=== PATIENT | male | born 1940 | race Caucasian/White ===

== ENCOUNTER → 2022-03-23 | Outpatient (CLI) | payer MEDICARE, BC ==
--- NOTE | 2022-03-23 16:22 | Diagnostic Imaging Report ---
INDICATION: PAIN OF LEFT KNEE JOINT TECHNIQUE: 4 views of the left knee CORRELATION STUDY: None FINDINGS: No acute bony alignment. Marked joint space narrowing laterally and, to a lesser degree, medially. Marginal osteophyte formation is noted laterally. There is narrowing and spur-like formation of the distal anterior femur as well as inferior pole of the patella. Prominent suprapatellar joint effusion. Additional soft tissue edema along the medial aspect of the knee. Multiple vascular clips in the soft tissues. IMPRESSION: 1. Negative for acute bony abnormality of the knee. Advanced multicompartment degenerative changes of the left knee most pronounced at the lateral and patellofemoral compartments. Dictated by: Dictated on workstation # [id number]
== END ==
LOC: ORTHO 12:54
PROVIDERS: ATTEND Orthopaedic Surgery
DX: M17.12 Unilateral primary osteoarthritis, left knee (principal)
CPT/HCPCS: 20610; 73564; G0463

== ENCOUNTER → 2022-04-08 | Outpatient (CLI) | payer MEDICARE, BC | LOC: ORTHO 10:15 | PROVIDERS: ATTEND Orthopaedic Surgery | DX: M17.12 Unilateral primary osteoarthritis, left knee (principal); I10 Essential (primary) hypertension; E11.9 Type 2 diabetes mellitus without complications | CPT/HCPCS: 99213 ==

== ENCOUNTER → 2022-05-12 | Outpatient (CLI) | payer MEDICARE ==
[~2022-05-12] VITALS: Ht 175.3 cm; Wt 117.1 kg
[~2022-05-12] MED LIST: CARV3.122 PO; GLIP5TAB26 PO; TMSL.4C PO; TORS100T4 PO
== END | disposition home or self-care (01) ==
LOC: PREOP 10:36
PROVIDERS: ATTEND Orthopaedic Surgery
DX: Z01.818 Encounter for other preprocedural examination (principal)
CPT/HCPCS: 87081; 93005

== ENCOUNTER → 2022-05-12 | Outpatient (CLI) | payer BC, MEDICARE ==
[2022-05-12 10:12] LABS: BASOPHILS % (AUTO) 1 % (0-10); EOSINOPHILS # (AUTO) 0.1 10^3/uL (0.0-0.3); EOSINOPHILS % (AUTO) 1 % (0-10); HEMOGLOBIN 15.3 g/dL (13.3-17.7)
[2022-05-12 10:14] LABS: HEMATOCRIT 46 % (40-54); LYMPHOCYTES # (AUTO) 1.1 10^3/uL (1.0-4.0); LYMPHOCYTES % (AUTO) 23 % (12-44); MEAN CORPUSCULAR HEMOGLOBIN 32 pg (25-34); MEAN CORPUSCULAR HGB CONC 34 g/dL (32-36); MEAN CORPUSCULAR VOLUME 95 fL (80-99); MEAN PLATELET VOLUME 11.9 fL (9.0-12.2); MONOCYTES # (AUTO) 0.4 10^3/uL (0.0-1.0); MONOCYTES % (AUTO) 8 % (0-12); NEUTROPHILS # (AUTO) 3.3 10^3/uL (1.8-7.8); NEUTROPHILS % (AUTO) 67 % (42-75); WHITE BLOOD COUNT 4.9 10^3/uL (4.3-11.0)
[2022-05-12 10:16] LABS: BILIRUBIN,URINE NEGATIVE (NEGATIVE); CLARITY,URINE CLEAR; COLOR,URINE DARK YELLOW; GLUCOSE, URINE (UA) NEGATIVE (NEGATIVE); KETONES,URINE TRACE (NEGATIVE); LEUKOCYTE ESTERASE ,URINE NEGATIVE (NEGATIVE); NITRITE,URINE NEGATIVE (NEGATIVE); PH,URINE 6.5 (5-9); PROTEIN,URINE 2+ (NEGATIVE)
[2022-05-12 10:19] LABS: PLATELET COUNT 106 10^3/uL (130-400)
[2022-05-12 10:38] LABS: RBC,URINE RARE /HPF
[2022-05-12 10:39] LABS: BACTERIA,URINE TRACE /HPF; SQUAMOUS EPITHELIAL CELL,UR RARE /HPF
[2022-05-12 10:55] LABS: CALCIUM 9.5 MG/DL (8.5-10.1); CREATININE SERUM 1.43 MG/DL (0.60-1.30); POTASSIUM 4.2 MMOL/L (3.6-5.0)
--- NOTE | 2022-05-12 11:08 | Diagnostic Imaging Report ---
EXAMINATION: Chest 2 view HISTORY: Preoperative exam. COMPARISON: None available. FINDINGS: The lungs are clear without edema or pneumonia. No pleural effusion or pneumothorax. Heart size is normal. Median sternotomy wires are aligned. There are coronary artery bypass graft markers. IMPRESSION: 1. Clear lungs. Dictated by: Dictated on workstation # [id number]
== END ==
LOC: ORTHO 09:31
PROVIDERS: ATTEND Orthopaedic Surgery
DX: Z01.812 Encounter for preprocedural laboratory examination (principal); Z01.811 Encounter for preprocedural respiratory examination; M17.12 Unilateral primary osteoarthritis, left knee
CPT/HCPCS: 36415; 71046; 80048; 81000; 85025

== ENCOUNTER 2022-05-31 07:05 | Day surgery (SDC) | payer MEDICARE ==
[~2022-05-31] VITALS: Ht 117.1 cm; Wt 117.1 kg
[2022-05-31] VITALS (10 sets, daily range): BP systolic 108–195; BP diastolic 57–89
[2022-05-31] MEDS ORDERED: ONDANSETRON 4 MG/2 ML (SDV) Z0FRAN ONE (07:20)
[2022-05-31] MEDS ORDERED: MIDAZOLAM 2 MG/2 ML (VERSED) VIAL ONE (07:20)
[2022-05-31] MEDS ORDERED: fentaNYL INJ 100 MCG/2 ML AMP ONE (07:20)
[2022-05-31] MEDS ORDERED: proPOfol 200 MG/20 ML (DIPRIVAN) VIAL IV ONE (07:20)
[2022-05-31] MEDS ORDERED: LIDOCAINE PF 2% 5 ML (XYLOCAINE) VIAL ONE (07:20)
[2022-05-31] MEDS ORDERED: TMSL.4C PO (07:25)
[2022-05-31] MEDS ORDERED: GLIP5TAB26 PO (07:25)
[2022-05-31] MEDS ORDERED: TORS100T4 PO (07:25)
[2022-05-31] MEDS ORDERED: BUPIVACAINE 0.5% 30 ML (SENSORCAINE) VIAL ONE (07:26)
--- NOTE | 2022-05-31 07:27 | Progress Note-Pre Operative ---
Pre-Operative Progress Note Date of Available H&P: May 12, 2022 Date H&P Reviewed: May 31, 2022 Time H&P Reviewed: 07:20 History & Physical: H&P Reviewed, Patient Examed, No changes noted Pre-Operative Diagnosis: Left Knee Primary Osteoarthritis MARTHA BROWN MD May 31, 2022 07:27
[2022-05-31] MEDS ORDERED: ceFAZolin INJECTION 2,000 MG in NS (IVPB) 50 ML IV ONE (07:30)
[2022-05-31] MEDS: LACTATED RINGERS 1,000 ML IV PRN ×2 (07:40→09:15)
[2022-05-31] MEDS ORDERED: PROPOFOL INJECTION 50 ML IV ONE (08:09)
[2022-05-31] MEDS ORDERED: SODIUM CHLORIDE 0.9% IRRIGATIO 150 ML, TRANEXAMIC ACID INJECTION 3,000 MG IR ONE ×2 (09:00)
[2022-05-31] MEDS ORDERED: ROPIVACAINE 5MG/ML 30ML VIAL ONE (09:19)
[2022-05-31] MEDS ORDERED: GLYCOPYRROLATE 0.2 MG/ML (ROBINUL) 2 ML VIAL ONE ×2 (09:30→09:31)
--- NOTE | 2022-05-31 10:26 | Operative Report - Ortho ---
Operative Report Surgeon (s)/Accessioner (s) Surgeon MARTHA BROWN MD Accessioner n/a Pre-Operative Diagnosis Left Knee Primary Osteoarthritis Post-Operative Diagnosis same Operative Report Date of Procedure: May 31, 2022 Name of Procedure Performed: Left Total Knee Arthroplasty Description & Findings After obtaining informed consent and marking the patient in the preoperative holding area, the patient did receive IV antibiotics. Patient was taken to the operating room and anesthesia was induced. Surgical timeout was taken. The left lower extremity was prepped and draped in the usual sterile fashion. Incision was made and carried down to fascia. Arthrotomy was performed on the medial side of the patella. Patella was retracted laterally and knee was flexed. Found to have circumferential osteophtye around the distal femur as well as exposed bone in the medial compartment. Hole was made in the distal femur for the intramedullary distal femoral cutting guide. Resection was made then the femur was sized as a 6. 4-in-1 block for a size [address]. Anterior cut was made and there was no notch. Posterior cut was made followed by the chamfers. Box cut was performed. Lug holes were drilled. Attention was turned to the tibial side, extramedullary tibial guide was put into place and aligned with the tibial crest. It was set to take 2 mm off of the affected lateral side. Drop margaret was used to confirm alignment. Resection was made and was parallel to the joint line. Tibial bone block was removed. Lamina machine operator general was put into place and the menisci and posterior osteophytes were removed. The knee was trialed with a size 6 femur and a size 6 tibia with a 9 mm poly trial. It was found to come out to full extension and flexed beyond 120 degrees. It was stable to varus and valgus stress throughout its range of motion. This was accepted. Knee was brought out into extension and the patella was measured and prepared for an inset patella. Osteophytes were removed from around the perimeter of the patella. Patellar implant was placed and was noted to have some lateral tracking. Trial implants were removed. Tibial tray was pinned and punched. The cut bone surfaces were lavaged with pulsatile normal saline. Implants were opened and assembled on the back table. Cement was mixed. Cement was applied to the cut bone surface as well as the implant surface. A size 6 tibial component was impacted into placed and excess cement was removed using a [place]. A size 6 femoral component was impacted into place and excess cement was removed using a [place]. Tibial tray was lavaged with saline. A 9 mm thick polyethylene component was locked into placed and the locking mechanism was checked. Knee was brought into extension. The knee was irrigated with normal saline. Irrigation was removed and tranexamic acid was placed. Once the cement had set, the knee was once again trialed; found to come to full extension, flexed beyond 120 degrees, and was stable to varus and valgus stress. A lateral release was performed to improve patellar tracking. Further tranexamic acid was applied for hemostasis. Tourniquet was dropped and electrocautery was used for further hemostasis. Fascial layer was closed with #2 Stratafix. The subcutaneous layer was closed with 2-0 Vicryl. The skin was closed with ramesh. Wound was dressed with steri-strips, xeroform, 4x4s, ABD, webril, and SUMIT wrap. Patient tolerated the procedure well and was stable to the recovery room. Anesthesia Type Spinal plus regional Estimated Blood Loss ~150 mL Specimen(s) collected/removed None MARTHA BROWN MD May 31, 2022 10:26
[2022-05-31] MEDS ORDERED: BISACODYL 5 MG (DULCOLAX) TABLET PO PRN (10:30)
[2022-05-31] MEDS ORDERED: MILK OF MAGNESIA 400 MG/5 ML 30 ML UDC PO PRN (10:30)
[2022-05-31] MEDS ORDERED: ONDANSETRON 4 MG/2 ML (SDV) Z0FRAN IV PRN (10:30)
[2022-05-31] MEDS ORDERED: HYDROmorphone 2 MG/ML VIAL (DILAUDID) IV ONE (11:15)
[2022-05-31] MEDS ORDERED: ONDANSETRON 4 MG/2 ML (SDV) Z0FRAN IVP PRN (11:15)
--- NOTE | 2022-05-31 11:18 | Diagnostic Imaging Report ---
INDICATION: Postop left knee arthroplasty. TECHNIQUE: AP and lateral views of the left knee were obtained at 10:57 AM. FINDINGS: There is a new left knee prosthesis in good alignment. There is no sign of fracture or device loosening. There is no unexpected radiopaque foreign body. IMPRESSION: Well aligned left knee prosthesis with no unexpected radiopaque foreign body post surgery. Dictated by: Dictated on workstation # [id number]
[2022-05-31] MEDS: inSUlin ASPART (NovoLOG) 1 UNIT/0.01 ML (CHARGE PER UNIT) SC SCH ×3 (11:39→21:16)
[2022-05-31] MEDS: NS IV 1000 ML 1,000 ML IV SCH ×2 (11:45→21:18)
--- NOTE | 2022-05-31 12:49 | Physical Therapy Progress Note ---
Therapy Progress Note Patient reports he can't feel or move anything from the waist down. PT will attempt later today, if unable to participate, PT will begin in a.m. 1 visit EFE PRETTY PT May 31, 2022 12:49
--- NOTE | 2022-05-31 15:09 | Consultation ---
MANUEL MCKEON 05/31/22 1509: HPI History of Present Illness: HPI/Chief Complaint Frederick Gilliam is a pleasant 81 y/o M with a past medical history of T2DM, BPH, HTN, and an ND in 2003 who was admitted after having a L knee arthroplasty done today by Dr. Bermudez. This operation was completed this AM 05/31 without intraoperative complications according to operative reports. Mr Gilliam was moved to the fourth floor for observation. Upon my exam he was lying in bed watching televsion. He is complaining of L knee pain at the surgical site. The pain is 10/10 and he describes it as an ache from his knee down to his left foot. He denies any new swelling, redness, or heat to his knee or foot. He has sensation and motor control of the left foot. He denies any other complaint at this time. No chest pain, shortness of breath, fever, chills, or trouble with urination or stooling. He states PT tried to come work with him earlier this afternoon but he refused because he could not feel his legs yet after surgery, he now has sensation and is ready to begin therapy. PT note says they will see him later today. Source: patient Exam Limitations: no limitations Date Seen 05/31/22 Attending Physician Sadaf Win DO PCP Admitting Physician: Attending Physician: Henry Bermudez MD Referring Physician Date of Admission Home Medications & Allergies Home Medications Reviewed patient Home Medication Reconciliation performed by pharmacy medication reconciliations compliance technician and/or nursing. Patients Allergies have been reviewed. Allergies Allergies Coded Allergies No Known Drug Allergies (Unverified05/12/22) Past Hilbxep-Cjdumt-Jffryd Hx Patient Social History Tobacco Use?: No Smoking Status: Former Smoker (remote 5 pack year history) Use of E-Cig and/or Vaping dev: No Substance use?: No Alcohol Use?: No (occasional drink at social settings once every 6 months or so) Pt feels they are or have been: No Immunizations Up To Date Tetanus Booster (TDap): Unknown Seasonal Allergies Seasonal Allergies: No Current Status Advance Directives: No Communicates: Verbally Primary Language: Sami Is interpretation needed?: No Sensory deficits: Vision impairment Past Medical History Surgeries: CABG (2003), Gallbladder Currently Using CPAP: No Currently Using BIPAP: No Chronic Edema/Swelling, Coronary Artery Disease, Heart Attack, Hypertension Arthritis Diabetes, Non-Insulin dep Family Medical History No Pertinent Family Hx Review of Systems Constitutional: No chills, No fever EENTM: No hoarseness Respiratory: No cough, No short of breath Cardiovascular: No chest pain; Hx of Intervention; No palpitations Gastrointestinal: No abdominal pain, No nausea Genitourinary: other (draining dark yellow urine via catheter) Musculoskeletal: joint pain (chronic) Skin: No change in color Psychiatric/Neurological: Denies Headache, Denies Weakness Physical Exam Physical Exam Vital Signs Vital Signs - First Documented 05/31/22 07:00 Temp 36.8 Pulse 78 Resp 18 B/P (MAP) 195/89 (124) Pulse Ox 95 O2 Delivery Room Air Capillary Refill : Less Than 3 Seconds Height, Weight, BMI Height: '" Weight: lbs. oz. kg; 38.10 BMI Method: General Appearance: No Apparent Distress, WD/WN HEENT: PERRL/EOMI, Moist Mucous Membranes Neck: Other (notes neck stiffness due to uncomfortablity in bed) Respiratory: Chest Non Tender, Normal Breath Sounds, No Accessory Muscle Use Cardiovascular: Regular Rate, Rhythm, No Murmur, Normal Peripheral Pulses Gastrointestinal: Non Tender, Soft Rectal: Deferred Extremity: Normal Capillary Refill (L foot), No Pedal Edema, Other (tenderness at L knee surgical site) Neurologic/Psychiatric: Alert, Oriented x3, Normal Mood/Affect Results Results/Procedures Labs Patient resulted labs reviewed. Imaging: Reviewed Imaging Report Assessment/Plan Assessment and Plan Assess & Plan/Chief Complaint POD 0 L knee arthroplasty Continue pain control. Pt received 5mg of oxycodone and still reports pain at 10/10. Can consider morphine as second line management if pain persists. Monitor for signs of infection. Given cefazolin before surgery. Has not ambulated after surgery yet. PT will begin their consultation later this afternoon as he can now feel his legs. DM SSI, last glucose was 84 HTN BPH 145/57 at last check. Continue to monitor. Will get his daily torsemide tomorrow morning. Continue tamsulosin as well starting tomorrow. MARY VILLASENOR DO 06/01/22 0502: HPI History of Present Illness: HPI/Chief Complaint PCP Dr Win Adult [employer] In[employer] Cota Source: patient Exam Limitations: no limitations Past Eajogsm-Lctxae-Itbjys Hx Patient Social History Marrital Status: Employed/Student: retired Smoking Status: Former Smoker (remote 5 pack year history) Past Medical History Surgeries: CABG (2003) Chronic Edema/Swelling, Coronary Artery Disease, Heart Attack, High Cholesterol, Hypertension Review of Systems Constitutional: see HPI Genitourinary: other (draining dark yellow urine via catheter) Musculoskeletal: joint pain (chronic) Physical Exam Physical Exam General Appearance: No Apparent Distress, WD/WN, Chronically ill, Obese Respiratory: Lungs Clear, Normal Breath Sounds Cardiovascular: Regular Rate, Rhythm Neurologic/Psychiatric: Alert, Oriented x3 Assessment/Plan Assessment and Plan Assess & Plan/Chief Complaint Assessment: Left knee replacement DM HTN CAD prev CABG Plan: Pain control Monitor closely Supervisory-Addendum Brief Verification & Attestation Participated in pt care: history, MDM, physical Personally performed: exam, history, MDM, supervision of care Care discussed with: Medical Student Procedures: n/a Results interpretation: Verified all documentation Verification and Attestation of Medical Student E/M Service A medical student performed and documented this service in my presence. I reviewed and verified all information documented by the medical student and made modifications to such information, when appropriate. I personally performed the physical exam and medical decision making. Mary Villasenor, Jun 01, 2022,05:00 MANUEL MCKEON May 31, 2022 15:09 MARY VILLASENOR DO Jun 01, 2022 05:02
[2022-05-31] MEDS: morphine INJ 4 MG/ML 1 ML (VIAL/SYRINGE) IVP PRN ×2 (15:39→19:44)
[2022-05-31] MEDS: DOCUSATE SODIUM 100 MG (COLACE) CAP PO SCH (19:45)
[2022-05-31] MEDS: ceFAZolin INJECTION 2,000 MG in NS (IVPB) 50 ML IV SCH (19:45)
[2022-06-01] VITALS (9 sets, daily range): BP systolic 142–177; BP diastolic 63–94
[2022-06-01] MEDS: morphine INJ 4 MG/ML 1 ML (VIAL/SYRINGE) IVP PRN (00:22)
[2022-06-01] MEDS: ACETAMINOPHEN 500 MG TAB (TYLENOL) PO PRN ×2 (00:22→09:22)
[2022-06-01] MEDS: ceFAZolin INJECTION 2,000 MG in NS (IVPB) 50 ML IV SCH (04:33)
[2022-06-01 05:26] LABS: BASOPHILS % (AUTO) 1 % (0-10); EOSINOPHILS # (AUTO) 0.1 10^3/uL (0.0-0.3); EOSINOPHILS % (AUTO) 2 % (0-10); HEMATOCRIT 40 % (40-54); HEMOGLOBIN 13.5 g/dL (13.3-17.7); LYMPHOCYTES # (AUTO) 1.2 10^3/uL (1.0-4.0); LYMPHOCYTES % (AUTO) 20 % (12-44); MEAN CORPUSCULAR HEMOGLOBIN 32 pg (25-34); MEAN CORPUSCULAR HGB CONC 34 g/dL (32-36); MEAN CORPUSCULAR VOLUME 95 fL (80-99); MEAN PLATELET VOLUME 12.3 fL (9.0-12.2); MONOCYTES # (AUTO) 0.6 10^3/uL (0.0-1.0); MONOCYTES % (AUTO) 10 % (0-12); NEUTROPHILS # (AUTO) 4.1 10^3/uL (1.8-7.8); NEUTROPHILS % (AUTO) 67 % (42-75); PLATELET COUNT 79 10^3/uL (130-400)
[2022-06-01 05:47] LABS: ALBUMIN 3.3 GM/DL (3.2-4.5); BILIRUBIN,TOTAL 2.4 MG/DL (0.1-1.0); CALCIUM 8.5 MG/DL (8.5-10.1); CREATININE SERUM 1.3 MG/DL (0.60-1.30)
[2022-06-01 05:50] LABS: SMEAR SCAN COMMENT YES
[2022-06-01] MEDS: inSUlin ASPART (NovoLOG) 1 UNIT/0.01 ML (CHARGE PER UNIT) SC SCH ×4 (06:11→20:25)
[2022-06-01] MEDS: NS IV 1000 ML 1,000 ML IV SCH ×2 (06:31→08:48)
[2022-06-01] MEDS: ASPIRIN E.C. 81 MG (ECOTRIN) TAB PO SCH ×2 (07:43→16:29)
[2022-06-01] MEDS: DOCUSATE SODIUM 100 MG (COLACE) CAP PO SCH ×2 (07:43→20:24)
[2022-06-01] MEDS: glipiZIDE XL 5 MG (GLUCOTROL XL) TAB PO SCH (07:44)
--- NOTE | 2022-06-01 08:29 | Occupational Therapy Eval ---
OT Evaluation-General/PLF Medical Diagnosis Admission Date 05/31/22 Medical Diagnosis: Left TKA Onset Date: May 31, 2022 Therapy Diagnosis Therapy Diagnosis: weakness/pain to left knee Precautions Precautions/Isolations: Fall Prevention, Standard Precautions Weight Bear Status Weight Bearing Restriction: Weight Bearing/Tolerated Location Restriction: L LE Referral Referral Reason: Evaluation/Treatment Medical History Additional Medical History Surgeries: CABG (2003) Chronic Edema/Swelling, Coronary Artery Disease, Heart Attack, High Cholesterol, Hypertension Current History s/p LTKA Social History Home: Single Level Current Living Status: Spouse (spouse is currently in rehab) Entry Into Home: Stairs Without Railing (2, son building ramp) Steps Inside Home: 0 (2 steps to enter through garage, son is building ramp for spouse) ADL-Prior Level of Function SCALE: Activities may be completed with or without assistive devices. 5-Boxmixmwsr-fzyklzl completes the activity by him/herself with no assistance from a helper. 5-Set-up or Clean-up Assistance-helper sets up or cleans up; patient completes activity. [place] assists only prior to or following the activity. 4-Supervision or Touching Assistance-helper provides verbal cues and/or touching/steadying and/or contact guard assistance as patient completes activity. Assistance may be provided throughout the activity or intermittently. 3-Partial/Moderate Assistance-helper does LESS THAN HALF the effort. [place] lifts, holds or supports trunk or limbs, but provides less than half the effort. 2-Substantial/Maximal Assistance-helper does MORE THAN HALF the effort. [place] lifts or holds trunk or limbs and provides more than half the effort. 7-Diragtdxw-vnplgt does ALL the effort. Patient does none of the effort to complete the activity. Or, the assistance of 2 or more helpers is required for the patient to complete the activity. If activity was not attempted, code reason: 7-Patient Refused. 9-Not Applicable-not attempted and the patient did not perform the activity before the current illness, exacerbation or injury. 10-Not Attempted due to Environmental Limitations-(lack of equipment, weather restraints, etc.). 88-Not Attempted due to Medical Conditions or Safety Concerns. Self Care: Independent Functional Cognition: Independent DME/Equipment: Bath Chair, Grab Bars, Shower Hose Yarn Spooler DME/Equipment Comments walk in shower, uses cane primarily with ambulation Drive Self: Yes Leisure Interests: golf OT Current Status Subjective Up in chair c/o 4-10/02 pain however reports had pain medication and PT evalu ation this morning Pain Numeric Pain Scale: 5-Moderate Pain Location: Left Location Body Site: Knee Pain Description: Ache, Pressure Mental Status/Objective Patient Orientation: Person, Place, Time, Situation Attachments: Polar Pack (education for use provided, OT set up and patient removed within 5 minutes) Current Glasses/Contacts: Yes Upper Extremity ROM BUE ROM WFLS Upper Extremity Strength BUE WFLS -07/28 ADL-Treatment ADL-Current LB dressing and safety w/ transfers w/ FWW Eating (QC): 6 Oral Hygiene (QC): 4 Shower/Bathe Self (QC): 7 (declined) Upper Body Dressing (QC): 5 Lower Body Dressing (QC): 4 On/Off Footwear (QC): 4 (left foot) Toileting Hygiene (QC): 7 (declined) Other Treatments polar pack instruction,poorly controlled stand to sit to recliner transition Education OT Patient Education: Correct positioning, Energy conservation, Exercise program, Modified ADL techniques, Progress toward Goal/Update tx plan, Purpose of tx/functional activities, Reviewed precautions, Rehab process, Safety issues, Transfer techniques, Use of adapted equipment Teaching Recipient: Patient Teaching Methods: Demonstration, Discussion Response to Teaching: Verbalize Understanding, Return Demonstration, Reinforcement Needed OT Valve Setter Goals [facility] Goals Time Frame: Jun 05, 2022 Eating (QC): 6 Oral Hygiene (QC): 6 Toileting Hygiene (QC): 6 Shower/Bathe Self (QC): 6 Upper Body Dressing (QC): 6 Lower Body Dressing (QC): 6 On/Off Footwear (QC): 6 1=Demonstrate adherence to instructed precautions during ADL tasks. 2=Patient will verbalize/demonstrate understanding of assistive devices/modifications for ADL. 3=Patient will improve strength/tolerance for activity to enable patient to perform ADL's. OT Education/Plan Problem List/Assessment Assessment: Decreased Activ Tolerance, Decreased Safety Aware, Impaired Coordination, Impaired Funct Balance, Impaired I ADL's, Impaired Self-Care Skills Discharge Recommendations Plan/Recommendations: Continue POC Therapy Discharge Recommendati: Post Acute OT Treatment Plan/Plan of Care Treatment,Training & Education: Yes Patient would benefit from OT for education, treatment and training to promote independence in ADL's, mobility, safety and/or upper extremity function for ADL's. Plan of Care: ADL Retraining, Concurrent Therapy, Functional Mobility, Group Exercise/Act as Ind, UE Funct Exercise/Act Treatment Duration: Jun 01, 2022 Frequency: 3 times per week (3-5 times per week) Estimated Hrs Per Day: .25 hour per day Agreement: Yes Rehab Potential: Good patient remains in recliner dressed in own clothing, has removed polar pack and attempted to ambulate and reach in unsafe distances as OT exited room., OT reenforced safety measures and use of call light that is on tray table, all needs met Time Start Time: 08:00 Stop Time: 08:38 DATE: Jun 01, 2022 Total Time Billed (hr/min): 38 Billed Treatment Time 1 visit EVM 1, ADL 2 38 minutes JOE ZHAO OT Jun 01, 2022 08:29
--- NOTE | 2022-06-01 08:42 | Physical Therapy Evaluation ---
PT Evaluation-General Medical Diagnosis Admission Date May 31, 2022 Medical Diagnosis: left TKR Onset Date: May 31, 2022 Therapy Diagnosis Therapy Diagnosis: impaired mobility/weakness Precautions Precautions/Isolations: Fall Prevention, Standard Precautions Weight Bear Status Right Lower Extremity: Right Full Weight Bearing Left Lower Extremity: Left Weight Bearing/Tolerated Referral Physician: Lara Reason for Referral: Evaluation/Treatment Medical History Pertinent Medical History: OA Current History s/p elective left TKR Reviewed History: Yes Social History Home: Single Level Current Living Status: Spouse Entry Into Home: Stairs With Railing PT Steps Into Home: 3 Prior Prior Level of Function SCALE: Activities may be completed with or without assistive devices. 8-Gwedxglkmi-aiqhesd completes the activity by him/herself with no assistance from a helper. 5-Set-up or Clean-up Assistance-helper sets up or cleans up; patient completes activity. [place] assists only prior to or following the activity. 4-Supervision or Touching Assistance-helper provides verbal cues and/or touching/steadying and/or contact guard assistance as patient completes activity. Assistance may be provided throughout the activity or intermittently. 3-Partial/Moderate Assistance-helper does LESS THAN HALF the effort. [place] lifts, holds or supports trunk or limbs, but provides less than half the effort. 2-Substantial/Maximal Assistance-helper does MORE THAN HALF the effort. [place] lifts or holds trunk or limbs and provides more than half the effort. 8-Sksxedeqc-jznlli does ALL the effort. Patient does none of the effort to complete the activity. Or, the assistance of 2 or more helpers is required for the patient to complete the activity. If activity was not attempted, code reason: 7-Patient Refused. 9-Not Applicable-not attempted and the patient did not perform the activity before the current illness, exacerbation or injury. 10-Not Attempted due to Environmental Limitations-(lack of equipment, weather restraints, etc.). 88-Not Attempted due to Medical Conditions or Safety Concerns. Bed Mobility: 6 Transfers (B,C,W/C): 6 Gait: 6 Stairs: 6 Indoor Mobility (Ambulation): Independent Stairs: Independent Prior Devices Use: Walker patient reports he has a ramp as well PT Evaluation-Current Subjective Patient states, "I want to go home. It's just about the money here. I'm ready to go." Patient reports 10/10 left knee pain with meds issued per RN report. Pain Numeric Pain Scale: 10-Worst Possible Pain Location Body Site: Knee Pain Description: Acute Objective Patient Orientation: Normal For Age ROM/Strength ROM Lower Extremities right LE WFL/left LE 0-10 degrees of flexion with patient resisting all ROM Strength Lower Extremities right LE 4/5;left LE 3+/5 grossly Integumentary/Posture Bowel Incontinence: No Bladder Incontinence: No Posture slightly kyphotic Neuromuscular (Tone, Coordination, Reflexes) grossly intact Sensory Vision: Wears Glasses Hearing: Impaired Transfers Lying to Sitting/Side of Bed(Q: 4 Sit to Stand (QC): 3 Chair/Wij-ge-Fcxkz Xfer(QC): 4 Gait Mode of Locomotion: Walk Anticipated Mode of Locomotion: Walk Walk 10 feet (QC): 4 Walk 50 ft with 2 Turns(QC): 4 Walk 150 ft (QC): 4 Distance: 180' Gait Assistive Device: FWW Comments/Gait Description slow, antalgic gait sequence Balance Sitting Static: Normal Sitting Dynamic: Normal Standing Static: Fair Standing Dynamic: Fair Assessment/Needs Patient resists all PROM left knee due to pain. Patient will benefit from skilled PT to address functional strength and mobility to improve current LOF to safely return to home a maximum LOF. Rehab Potential: Fair PT [facility] Goals Client Services Account Manager Goals PT Client Services Account Manager Goals Time Frame: Jun 05, 2022 Roll Left & Right (QC): 6 Sit to Lying (QC): 6 Lying-Sitting on Side/Bed(QC): 6 Sit to Stand (QC): 5 Chair/Oue-jh-Yznme Xfer(QC): 5 Toilet Transfer (QC): 5 Walk 10 feet (QC): 5 Walk 50ft with 2 Turns (QC): 5 Walk 150 ft (QC): 5 1 Step (curb) (QC): 4 4 Steps (QC): 4 PT Plan Problem List Problem List: Activity Tolerance, Functional Strength, Safety, Balance, Gait, Transfer, Bed Mobility, ROM Treatment/Plan Treatment Plan: Continue Plan of Care Treatment Plan: Bed Mobility, Education, Functional Activity Ace, Functional Strength, Gait, Safety, Therapeutic Exercise, Transfers Treatment Duration: Jun 05, 2022 Frequency: 11 times per week Estimated Hrs Per Day: .5 hour per day Patient and/or Family Agrees t: Yes Time Time In: 700 Time Out: 719 DATE: Jun 01, 2022 Total Billed Treatment Time: 19 Total Billed Treatment 1 visit EVModC 19 min EFE PRETTY PT Jun 01, 2022 08:42
[2022-06-01] MEDS ORDERED: TAMSULOSIN 0.4 MG (FLOMAX) CAP PO SCH (09:00)
[2022-06-01] MEDS ORDERED: TORSEMIDE 20 MG (DEMADEX) TAB PO SCH (09:00)
--- NOTE | 2022-06-01 09:09 | Progress Note - Ortho ---
Progress Note Subjective Date of Exam 06/01/22 Chief Complaint POD #1 L TKA HPI/Events since last exam doing well, has started therapy, notes difficulty bending knee Review of Systems - Allergies: Coded Allergies: No Known Drug Allergies (Unverified , 05/12/22) Home Meds Reported Medications Torsemide (Torsemide) 100 Mg Tablet, 100 MG PO DAILY, TAB 05/31/22 Tamsulosin HCl (Flomax) 0.4 Mg Cap, 0.4 MG PO DAILY, CAP 05/31/22 Glipizide (Glipizide ER) 5 Mg Tab.er.24, 5 MG PO DAILY, TAB 05/31/22 Discontinued Reported Medications Torsemide (Torsemide) 100 Mg Tablet, 50 MG PO DAILY, TAB 05/12/22 Tamsulosin HCl (Flomax) 0.4 Mg Cap, 0.4 MG PO HS, CAP 05/12/22 Glipizide (Glipizide ER) 5 Mg Tab.er.24, 5 MG PO DAILY, TAB 05/12/22 Carvedilol (Carvedilol) 3.125 Mg Tablet, 3.125 MG PO BID, TAB 05/12/22 Objective Exam L Knee: Dressing C/D/I, +DF of ankle, no s/s of DVT Vital Signs Vital Signs Date Time Temp Pulse Resp B/P (MAP) Pulse Ox O2 Delivery O2 Flow Rate FiO2 06/01/22 07:52 96 Room Air 06/01/22 07:23 37.7 91 18 162/64 (96) 91 Room Air 0.00 0.00 06/01/22 06:16 91 Room Air 06/01/22 03:28 37.7 58 20 147/65 (92) 94 Nasal Cannula 2.50 06/01/22 01:00 37.8 06/01/22 01:00 37.8 06/01/22 00:23 93 Nasal Cannula 2.50 06/01/22 00:22 38.5 06/01/22 00:17 38.5 71 20 145/63 (90) 85 Room Air 05/31/22 19:50 Room Air 05/31/22 19:19 37.4 69 20 133/60 (84) 93 Room Air 05/31/22 15:32 37.3 70 20 149/66 (93) 93 Room Air 05/31/22 11:56 96 Room Air 05/31/22 11:31 36.0 56 20 145/57 (86) 96 Room Air 05/31/22 11:05 36.2 12 142/64 (90) 95 Room Air 05/31/22 11:05 Room Air 05/31/22 11:00 Room Air 05/31/22 10:50 12 151/67 (95) 96 Room Air 05/31/22 10:45 OxyMask 3 05/31/22 10:40 14 134/84 (101) 100 OxyMask 3 05/31/22 10:30 16 116/65 (82) 98 OxyMask 3 05/31/22 10:30 OxyMask 3 05/31/22 10:20 18 118/66 (83) 99 OxyMask 3 05/31/22 10:15 OxyMask 3 05/31/22 10:15 36.2 16 108/69 (82) 93 OxyMask 3 I & O 06/01/22 07:00 Intake Total 2890 ml Output Total 640 ml Balance 2250 ml Lab Results Laboratory Tests 05/31/22 11:29: Glucometer 84 05/31/22 15:36: Glucometer 176H 05/31/22 20:27: Glucometer 190H 06/01/22 05:10: White Blood Count 6.0, Red Blood Count 4.24L, Hemoglobin 13.5, Hematocrit 40, Mean Corpuscular Volume 95, Mean Corpuscular Hemoglobin 32, Mean Corpuscular Hemoglobin Concent 34, Red Cell Distribution Width 13.5, Platelet Count 79L, Mean Platelet Volume 12.3H, Immature Granulocyte % (Auto) 0, Neutrophils (%) (Auto) 67, Lymphocytes (%) (Auto) 20, Monocytes (%) (Auto) 10, Eosinophils (%) (Auto) 2, Basophils (%) (Auto) 1, Neutrophils # (Auto) 4.1, Lymphocytes # (Auto) 1.2, Monocytes # (Auto) 0.6, Eosinophils # (Auto) 0.1, Basophils # (Auto) 0.0, Immature Granulocyte # (Auto) 0.0, Percent Immature Platelet Fraction 9.4H, Sodium Level 141, Potassium Level 4.0, Chloride Level 106, Carbon Dioxide Level 25, Anion Gap 10, Blood Urea Nitrogen 15, Creatinine 1.30, Estimat Glomerular Filtration Rate 55, BUN/Creatinine Ratio 12, Glucose Level 159H, Calcium Level 8.5, Corrected Calcium 9.1, Total Bilirubin 2.4H, Aspartate Amino Transf (AST/SGOT) 41H, Alanine Aminotransferase (ALT/SGPT) 24, Alkaline Phosphatase 87, Total Protein 6.0L, Albumin 3.3, Smear Scan YES Imaging 2 postop views of the left knee were reviewed and demonstrated good alignment of components and no complicating features Assessment and Plan Assessment 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
--- NOTE | 2022-06-01 09:59 | Anesthesia-Regional Post-Op ---
Regional Patient Condition Mental Status: Alert, Oriented x3 Circulation: Same as Pre-Op Headache: Absent Sensation: Full Recovery Motor Block: Absent Post Op Complications Complications None Follow Up Care/Instructions Patient Instructions None needed. Anesthesia/Patient Condition Patient is doing well, no complaints, stable vital signs, no apparent adverse anesthesia problems. No complications reported per nursing. D/C home per [facility] Criteria: Yes SIS CHAMBERLAIN CRNA Jun 01, 2022 09:59
--- NOTE | 2022-06-01 13:17 | Progress Note ---
MANUEL MCKEON 06/01/22 1317: Subjective Subjective/Events-last exam Mr Bloom was seen at bedside this AM comfortably watching tv. He reports that he feels well and the pain in his L knee is 6/10 which is much improved since yesterday after the operation. He received morphine and acetominophen this AM and his pain is under control. RN reported blood with removal of catheter at around 0600 today. Pt states he has urinated on his own and he denies hematuria/dysuria. PT began seeing him this morning and patient was able to ambulate with them without significant issue. On our repeat visit with Dr. Villasenor Mr. Bloom attempted to go to the restroom by himself and an RN quickly came to assist. He has gained some ability to bend the L knee today compared to yesterday. Home meds restarted this morning. Review of Systems General: No Chills, No Night Sweats HEENT: No Head Aches Pulmonary: No Dyspnea, No Cough Cardiovascular: No: Chest Pain, Palpitations Gastrointestinal: No: Vomiting, Abdominal Pain Genitourinary: No Dysuria; Hematuria (noted on removal of catheter by RN) Musculoskeletal: leg pain Neurological: No: Confusion Objective Exam Last Set of Vital Signs Vital Signs Date Time Temp Pulse Resp B/P (MAP) Pulse Ox O2 Delivery O2 Flow Rate FiO2 06/01/22 12:29 37.2 06/01/22 11:33 78 20 170/70 (103) 94 Room Air 0.00 0.00 Capillary Refill : Less Than 3 Seconds I&O Intake and Output 06/01/22 00:00 Intake Total 2640 ml Output Total 390 ml Balance 2250 ml Intake Oral 540 ml IV Total 2100 ml Output Urine Total 390 ml Daily Weight Change No General: Alert, Oriented X3, Cooperative HEENT: EOMI Neck: Supple Lungs: Clear to Auscultation Heart: Regular Rate, No Murmurs Abdomen: Normal Bowel Sounds, No Tenderness Extremities: No Cyanosis, Other (edema at the ankles b/l. patient reports this is baseline) Neuro: Normal Speech Psych/Mental Status: Mental Status NL, Mood NL Results Lab Laboratory Tests 05/31/22 15:36: Glucometer 176H 05/31/22 20:27: Glucometer 190H 06/01/22 05:10: White Blood Count 6.0, Red Blood Count 4.24L, Hemoglobin 13.5, Hematocrit 40, Mean Corpuscular Volume 95, Mean Corpuscular Hemoglobin 32, Mean Corpuscular Hemoglobin Concent 34, Red Cell Distribution Width 13.5, Platelet Count 79L, Mean Platelet Volume 12.3H, Immature Granulocyte % (Auto) 0, Neutrophils (%) (Auto) 67, Lymphocytes (%) (Auto) 20, Monocytes (%) (Auto) 10, Eosinophils (%) (Auto) 2, Basophils (%) (Auto) 1, Neutrophils # (Auto) 4.1, Lymphocytes # (Auto) 1.2, Monocytes # (Auto) 0.6, Eosinophils # (Auto) 0.1, Basophils # (Auto) 0.0, Immature Granulocyte # (Auto) 0.0, Percent Immature Platelet Fraction 9.4H, Sodium Level 141, Potassium Level 4.0, Chloride Level 106, Carbon Dioxide Level 25, Anion Gap 10, Blood Urea Nitrogen 15, Creatinine 1.30, Estimat Glomerular Filtration Rate 55, BUN/Creatinine Ratio 12, Glucose Level 159H, Calcium Level 8.5, Corrected Calcium 9.1, Total Bilirubin 2.4H, Aspartate Amino Transf (AST/SGOT) 41H, Alanine Aminotransferase (ALT/SGPT) 24, Alkaline Phosphatase 87, Total Protein 6.0L, Albumin 3.3, Smear Scan YES 06/01/22 10:35: Glucometer 185H Microbiology 05/31/22 MRSA Screen - Final, Complete MRSA not isolated Radiology NAME: DANDY BLOOM [facility] REC#: [id number] PT STATUS: REG [facility] : 1940 PHYSICIAN: MARTHA BROWN MD ADMIT DATE: 05/31/22 Signed Date of Exam:05/31/22 KNEE, LEFT, 2 VIEWS (AP & LAT) INDICATION: Postop left knee arthroplasty. TECHNIQUE: AP and lateral views of the left knee were obtained at 10:57 AM. FINDINGS: There is a new left knee prosthesis in good alignment. There is no sign of fracture or device loosening. There is no unexpected radiopaque foreign body. IMPRESSION: Well aligned left knee prosthesis with no unexpected radiopaque foreign body post surgery. Dictated by: Dictated on workstation # [id number] Dict: 05/31/22 1115 Trans: 05/31/22 1241 [id number] Interpreted by: JENNIFER KEANE MD Electronically signed by: JENNIFER KEANE MD 05/31/22 1241 Assessment/Plan Assessment/Plan Assess & Plan/Chief Complaint POD 1 L knee arthroplasty Continue pain control. Morphine and acetominophen given this AM. Monitor for signs of infection. Given cefazolin before surgery. Has began work with PT services, has tolerated ambulation so far. Encouraged IS use 10x per hour. DM SSI, 2 units given today. Last blood sugar in the 180s. Received home med glipizide today. HTN BPH 147/65 at last check. Continue to monitor. Home meds restarted. Plan for transfer to [facility] for rehab services tomorrow. MARY VILLASENOR DO 06/02/22 0512: Subjective Date Seen by a Provider: Jun 01, 2022 Time Seen by a Provider: 11:00 Objective Exam General: Alert, Oriented X3, Cooperative, No Acute Distress Psych/Mental Status: Mental Status NL, Mood NL Supervisory-Addendum Brief Verification & Attestation Participated in pt care: history, MDM, physical Personally performed: exam, history, MDM, supervision of care Care discussed with: Medical Student Procedures: n/a Results interpretation: Verified all documentation Verification and Attestation of Medical Student E/M Service A medical student performed and documented this service in my presence. I reviewed and verified all information documented by the medical student and made modifications to such information, when appropriate. I personally performed the physical exam and medical decision making. Mary Villasenor Jun 02, 2022,05:11 MANUEL MCKEON Jun 01, 2022 13:17 MARY VILLASENOR DO Jun 02, 2022 05:12
--- NOTE | 2022-06-01 13:50 | Physical Therapy Daily Note ---
PT Daily Note-Current Subjective Patient agrees to PT. Pain Section J - Health Conditions 1. Rarely or not at all 2. Occasionally 3. Frequently 4. Almost constantly 8. Unable to answer Pain Effect on Sleep: 2 Pain Interference with Therapy: 2 Pain Interference w/Day-to-Day: 2 Mental Status Patient Orientation: Person, Time, Situation Transfers SCALE: Activities may be completed with or without assistive devices. 1-Qtujbrcahl-abmwhvi completes the activity by him/herself with no assistance from a helper. 5-Set-up or Clean-up Assistance-helper sets up or cleans up; patient completes activity. [place] assists only prior to or following the activity. 4-Supervision or Touching Assistance-helper provides verbal cues and/or touching/steadying and/or contact guard assistance as patient completes activity. Assistance may be provided throughout the activity or intermittently. 3-Partial/Moderate Assistance-helper does LESS THAN HALF the effort. [place] lifts, holds or supports trunk or limbs, but provides less than half the effort. 2-Substantial/Maximal Assistance-helper does MORE THAN HALF the effort. [place] lifts or holds trunk or limbs and provides more than half the effort. 8-Rsbynoqvc-njyknr does ALL the effort. Patient does none of the effort to complete the activity. Or, the assistance of 2 or more helpers is required for the patient to complete the activity. If activity was not attempted, code reason: 7-Patient Refused. 9-Not Applicable-not attempted and the patient did not perform the activity before the current illness, exacerbation or injury. 10-Not Attempted due to Environmental Limitations-(lack of equipment, weather restraints, etc.). 88-Not Attempted due to Medical Conditions or Safety Concerns. Sit to Stand (QC): 4 Weight Bearing Right Lower Extremity: Right Full Weight Bearing Left Lower Extremity: Left Weight Bearing/Tolerated Gait Training Distance: 250' Walk 10 feet (QC): 4 Walk 50 ft with 2 Turns(QC): 4 Walk 150 ft (QC): 4 Gait Assistive Device: FWW CGA for safety/VC's for gait sequence and to bed left knee/heel toe gait Exercises Supine Ex: Ankle pumps, Quad Set, Heel Slides Supine Reps: 12 (AAROM in recliner with LE's elevated) Seated Therapy Exercises: Long arc quads Seated Reps: 15 (AAROM/very resistive with flexion) Assessment Patient tolerated treatment and is up in recliner with lunch in situ. Patient did allow more left knee flexion this p.m. Increase ROM and activity as tolerated by patient. PT [facility] Goals Educational Interpreter Goals PT [facility] Goals Time Frame: Jun 05, 2022 Roll Left & Right (QC): 6 Sit to Lying (QC): 6 Lying-Sitting on Side/Bed(QC): 6 Sit to Stand (QC): 5 Chair/Jrc-hg-Aznkc Xfer(QC): 5 Toilet Transfer (QC): 5 Walk 10 feet (QC): 5 Walk 50ft with 2 Turns (QC): 5 Walk 150 ft (QC): 5 1 Step (curb) (QC): 4 4 Steps (QC): 4 PT Plan Treatment/Plan Treatment Plan: Continue Plan of Care Treatment Plan: Bed Mobility, Education, Functional Activity Ace, Functional Strength, Gait, Safety, Therapeutic Exercise, Transfers Treatment Duration: Jun 05, 2022 Frequency: 11 times per week Estimated Hrs Per Day: .5 hour per day Patient and/or Family Agrees t: Yes Time Time In: 1301 Time Out: 1324 DATE: Jun 01, 2022 Total Billed Treatment Time: 23 Total Billed Treatment 1 visit GT 14 min EX 9 min EFE PRETTY PT Jun 01, 2022 13:50
[2022-06-01] MEDS: TAMSULOSIN 0.4 MG (FLOMAX) CAP PO SCH (16:29)
[2022-06-02 04:27] VITALS: BP 113/62
[2022-06-02 05:23] LABS: MEAN CORPUSCULAR VOLUME 94 fL (80-99)
[2022-06-02 05:26] LABS: BASOPHILS % (AUTO) 1 % (0-10); EOSINOPHILS # (AUTO) 0.1 10^3/uL (0.0-0.3); EOSINOPHILS % (AUTO) 2 % (0-10); HEMATOCRIT 40 % (40-54); HEMOGLOBIN 13.6 g/dL (13.3-17.7); LYMPHOCYTES % (AUTO) 16 % (12-44); MEAN CORPUSCULAR HEMOGLOBIN 32 pg (25-34); MEAN CORPUSCULAR HGB CONC 34 g/dL (32-36); MEAN PLATELET VOLUME 12.4 fL (9.0-12.2); MONOCYTES # (AUTO) 0.6 10^3/uL (0.0-1.0); MONOCYTES % (AUTO) 9 % (0-12); NEUTROPHILS # (AUTO) 4.5 10^3/uL (1.8-7.8); NEUTROPHILS % (AUTO) 72 % (42-75); PLATELET COUNT 81 10^3/uL (130-400); WHITE BLOOD COUNT 6.2 10^3/uL (4.3-11.0)
[2022-06-02 05:53] LABS: ALBUMIN 3.3 GM/DL (3.2-4.5); BILIRUBIN,TOTAL 2.2 MG/DL (0.1-1.0); CALCIUM 9.2 MG/DL (8.5-10.1); CREATININE SERUM 1.35 MG/DL (0.60-1.30); POTASSIUM 3.8 MMOL/L (3.6-5.0); TOTAL PROTEIN 6.2 GM/DL (6.4-8.2)
[2022-06-02] MEDS: inSUlin ASPART (NovoLOG) 1 UNIT/0.01 ML (CHARGE PER UNIT) SC SCH ×4 (06:02→20:47)
[2022-06-02 07:41] VITALS: BP 129/67
[2022-06-02] MEDS: TORSEMIDE 20 MG (DEMADEX) TAB PO SCH (08:12)
[2022-06-02] MEDS: DOCUSATE SODIUM 100 MG (COLACE) CAP PO SCH ×2 (08:12→20:01)
[2022-06-02] MEDS: glipiZIDE XL 5 MG (GLUCOTROL XL) TAB PO SCH (08:12)
[2022-06-02] MEDS: ASPIRIN E.C. 81 MG (ECOTRIN) TAB PO SCH ×2 (08:12→17:38)
--- NOTE | 2022-06-02 09:51 | Occupational Ther Daily Note ---
OT Current Status-Daily Note Subjective Resting reclined in chair Pain Numeric Pain Scale: 6 (with intial ROM and transitional movements 4/10 thereafter) Mental Status/Objective Patient Orientation: Person, Place, Time, Situation (will transfer to rehab closer to home) ADL-Treatment standing toileting, ADL transfer training Therapy Code Descriptions/Definitions Functional [place] Measure: 0=Not Assessed/NA 4=Minimal Assistance 1=Total Assistance 5=Supervision or Setup 2=Maximal Assistance 6=Modified [place] 3=Moderate Assistance 7=Complete IndependenceSCALE: Activities may be completed with or without assistive devices. 9-Mbyrvwhpem-bbpcfir completes the activity by him/herself with no assistance from a helper. 5-Set-up or Clean-up Assistance-helper sets up or cleans up; patient completes activity. [place] assists only prior to or following the activity. 4-Supervision or Touching Assistance-helper provides verbal cues and/or touching/steadying and/or contact guard assistance as patient completes activity. Assistance may be provided throughout the activity or intermittently. 3-Partial/Moderate Assistance-helper does LESS THAN HALF the effort. [place] lifts, holds or supports trunk or limbs, but provides less than half the effort. 2-Substantial/Maximal Assistance-helper does MORE THAN HALF the effort. [place] lifts or holds trunk or limbs and provides more than half the effort. 0-Quqatrudn-pzmisc does ALL the effort. Patient does none of the effort to complete the activity. Or, the assistance of 2 or more helpers is required for the patient to complete the activity. If activity was not attempted, code reason: 7-Patient Refused. 9-Not Applicable-not attempted and the patient did not perform the activity before the current illness, exacerbation or injury. 10-Not Attempted due to Environmental Limitations-(lack of equipment, weather restraints, etc.). 88-Not Attempted due to Medical Conditions or Safety Concerns. Eating (QC): 6 Oral Hygiene (QC): 4 (requires safety cues standing at sink w/ FWW) Shower/Bathe Self (QC): 7 (declines) Upper Body Dressing (QC): 5 Lower Body Dressing (QC): 3 On/Off Footwear: 3 Toileting Hygiene (QC): 7 (standing urination) Toilet Transfer (QC): 7 (standing urination) Other Treatment various surfaces w/ w/o arm rests for transfer training. Standard chair w/o arm rest Max assist, w/ arm rest mod assist, instructed in arm chair pushup 10 reps Education OT Patient Education: Correct positioning, Energy conservation, Exercise program (Instructed in arm chair push ups), Modified ADL techniques, Progress toward Goal/Update tx plan, Purpose of tx/functional activities, Reviewed precautions, Rehab process, Safety issues, Transfer techniques, Use of adapted equipment Teaching Recipient: Patient Teaching Methods: Demonstration, Discussion Response to Teaching: Verbalize Understanding, Reinforcement Needed OT Retirement Goals Talent Acquisition Assistant Goals Time Frame: Jun 05, 2022 Eating (QC): 6 Oral Hygiene (QC): 6 Toileting Hygiene (QC): 6 Shower/Bathe Self (QC): 6 Upper Body Dressing (QC): 6 Lower Body Dressing (QC): 6 On/Off Footwear (QC): 6 1=Demonstrate adherence to instructed precautions during ADL tasks. 2=Patient will verbalize/demonstrate understanding of assistive devices/modifications for ADL. 3=Patient will improve strength/tolerance for activity to enable patient to perform ADL's. OT Education/Plan Problem List/Assessment Assessment: Decreased Activ Tolerance, Decreased Safety Aware, Decreased UE Strength, Impaired Cognition, Impaired Coordination, Impaired Funct Balance, Impaired Self-Care Skills Discharge Recommendations Plan/Recommendations: Continue POC Therapy Discharge Recommendati: Post Acute OT Treatment Plan/Plan of Care Treatment,Training & Education: Yes Patient would benefit from OT for education, treatment and training to promote independence in ADL's, mobility, safety and/or upper extremity function for ADL's. Plan of Care: ADL Retraining, Concurrent Therapy, Functional Mobility, Group Exercise/Act as Ind, UE Funct Exercise/Act Treatment Duration: Jun 01, 2022 Frequency: 3 times per week (3-5 times per week) Estimated Hrs Per Day: .25 hour per day Agreement: Yes Rehab Potential: Good Up in recliner resting, all needs met Time Start Time: 09:19 Stop Time: 09:36 DATE: Jun 02, 2022 Total Time Billed (hr/min): 17 Billed Treatment Time 1 visit ADL 1 17 min JOE ZHAO OT Jun 02, 2022 09:51
--- NOTE | 2022-06-02 10:38 | Physical Therapy Daily Note ---
PT Daily Note-Current Subjective Pt. up in recliner, agrees to rx but resists knee flexion. Pt. c/o pain in left knee but doesnt rate. Requests to toilet during Rx. Pain Section J - Health Conditions 1. Rarely or not at all 2. Occasionally 3. Frequently 4. Almost constantly 8. Unable to answer Pain Effect on Sleep: 2 Pain Interference with Therapy: 2 Pain Interference w/Day-to-Day: 2 Mental Status Patient Orientation: Normal For Age Attachments: Polar Pack Transfers SCALE: Activities may be completed with or without assistive devices. 1-Rqsgciulol-fslvhoc completes the activity by him/herself with no assistance from a helper. 5-Set-up or Clean-up Assistance-helper sets up or cleans up; patient completes activity. [place] assists only prior to or following the activity. 4-Supervision or Touching Assistance-helper provides verbal cues and/or touching/steadying and/or contact guard assistance as patient completes activity. Assistance may be provided throughout the activity or intermittently. 3-Partial/Moderate Assistance-helper does LESS THAN HALF the effort. [place] lifts, holds or supports trunk or limbs, but provides less than half the effort. 2-Substantial/Maximal Assistance-helper does MORE THAN HALF the effort. [place] lifts or holds trunk or limbs and provides more than half the effort. 2-Kouxetwri-uhpfqv does ALL the effort. Patient does none of the effort to complete the activity. Or, the assistance of 2 or more helpers is required for the patient to complete the activity. If activity was not attempted, code reason: 7-Patient Refused. 9-Not Applicable-not attempted and the patient did not perform the activity before the current illness, exacerbation or injury. 10-Not Attempted due to Environmental Limitations-(lack of equipment, weather restraints, etc.). 88-Not Attempted due to Medical Conditions or Safety Concerns. Roll Left & Right (QC): 6 Sit to Lying (QC): 6 Lying to Sitting/Side of Bed(Q: 6 Sit to Stand (QC): 4 Chair/Gtv-jn-Nzyfg Xfer(QC): 4 with knee extended and min flexion to approx 35 to 40 deg pt. pushes with arms up down from chair, resisting knee flexion. CGA for TRFs Weight Bearing Right Lower Extremity: Right Full Weight Bearing Left Lower Extremity: Left Weight Bearing/Tolerated Gait Training Does the Patient Walk?: Yes Walk 150 ft (QC): 6 Gait Assistive Device: FWW heavy wt bearing on FWW with antalgic gait, poor heel strike and poor knee flexion. 200ft , 55ft CGA Exercises Supine Ex: Ankle pumps, Quad Set, Rolling, Heel Slides, Straight leg raise (indep x 10) Supine Reps: 15 Seated Therapy Exercises: Ankle pumps, Sit to stand, Long arc quads Seated Reps: 12 Treatments TRFs, gait, therex Assessment Current Status: Good Progress AROM 0 to 40 deg, in spite of this pt manages well in out bed nd toileting etc. pt. resists knee flexion etc PT Rectifier Operator Goals Rectifier Operator Goals PT Longterm Goals Time Frame: Jun 05, 2022 Roll Left & Right (QC): 6 Sit to Lying (QC): 6 Lying-Sitting on Side/Bed(QC): 6 Sit to Stand (QC): 5 Chair/Lmw-ky-Ubzug Xfer(QC): 5 Toilet Transfer (QC): 5 Walk 10 feet (QC): 5 Walk 50ft with 2 Turns (QC): 5 Walk 150 ft (QC): 5 1 Step (curb) (QC): 4 4 Steps (QC): 4 PT Plan Treatment/Plan Treatment Plan: Continue Plan of Care Treatment Plan: Bed Mobility, Education, Functional Activity Ace, Functional Strength, Gait, Safety, Therapeutic Exercise, Transfers Treatment Duration: Jun 05, 2022 Frequency: 11 times per week Estimated Hrs Per Day: .5 hour per day Patient and/or Family Agrees t: Yes Safety Risks/Education Patient Education: Gait Training, Transfer Techniques, Correct Positioning, Disease Process, Safety Issues Teaching Recipient: Patient Teaching Methods: Discussion Response to Teaching: Return Demonstration, Reinforcement Needed Time Time In: 1015 Time Out: 1035 DATE: Jun 02, 2022 Total Billed Treatment Time: 20 Total Billed Treatment 1,GT20m KANDI PÉREZ LEAD SETTER Jun 02, 2022 10:38
[2022-06-02 11:19] VITALS: BP 170/79
--- NOTE | 2022-06-02 12:50 | Physical Therapy Daily Note ---
PT Daily Note-Current Subjective Pt. up in recliner upon arrival. Pt. agrees to Rx, no c/o pain Pain Location: No Pain Reported Section J - Health Conditions 1. Rarely or not at all 2. Occasionally 3. Frequently 4. Almost constantly 8. Unable to answer Pain Effect on Sleep: 2 Pain Interference with Therapy: 2 Pain Interference w/Day-to-Day: 2 Mental Status Patient Orientation: Normal For Age Transfers SCALE: Activities may be completed with or without assistive devices. 9-Yapfgkxjsn-mfyvnqo completes the activity by him/herself with no assistance from a helper. 5-Set-up or Clean-up Assistance-helper sets up or cleans up; patient completes activity. [place] assists only prior to or following the activity. 4-Supervision or Touching Assistance-helper provides verbal cues and/or touching/steadying and/or contact guard assistance as patient completes activity. Assistance may be provided throughout the activity or intermittently. 3-Partial/Moderate Assistance-helper does LESS THAN HALF the effort. [place] lifts, holds or supports trunk or limbs, but provides less than half the effort. 2-Substantial/Maximal Assistance-helper does MORE THAN HALF the effort. [place] lifts or holds trunk or limbs and provides more than half the effort. 2-Sakwztqob-ubttqh does ALL the effort. Patient does none of the effort to complete the activity. Or, the assistance of 2 or more helpers is required for the patient to complete the activity. If activity was not attempted, code reason: 7-Patient Refused. 9-Not Applicable-not attempted and the patient did not perform the activity before the current illness, exacerbation or injury. 10-Not Attempted due to Environmental Limitations-(lack of equipment, weather restraints, etc.). 88-Not Attempted due to Medical Conditions or Safety Concerns. all sit to stands SBA to mod I, stand to sits all hard plop with extended LE . Educated pt. regarding safety and using hands for sitting safely etc Weight Bearing Right Lower Extremity: Right Full Weight Bearing Left Lower Extremity: Left Weight Bearing/Tolerated Gait Training Does the Patient Walk?: Yes Walk 150 ft (QC): 6 Gait Assistive Device: FWW pt. ambulated 200 plus ft FWW SBA, improved gait pattern with more equal step length when cued . heavy wt bearing on FWW Exercises Seated Therapy Exercises: Ankle pumps, Sit to stand, Long arc quads, Hip flexion, Hamstring Curls Seated Reps: 10 Treatments gait, TRFs, seated TKR ex. call edwards at hand, chair alarm insitu Assessment Current Status: Good Progress PT Student Development Dean Goals Fpc Goals PT Fpc Goals Time Frame: Jun 05, 2022 Roll Left & Right (QC): 6 Sit to Lying (QC): 6 Lying-Sitting on Side/Bed(QC): 6 Sit to Stand (QC): 5 Chair/Hyg-qw-Bosts Xfer(QC): 5 Toilet Transfer (QC): 5 Walk 10 feet (QC): 5 Walk 50ft with 2 Turns (QC): 5 Walk 150 ft (QC): 5 1 Step (curb) (QC): 4 4 Steps (QC): 4 PT Plan Treatment/Plan Treatment Plan: Continue Plan of Care Treatment Plan: Bed Mobility, Education, Functional Activity Ace, Functional Strength, Gait, Safety, Therapeutic Exercise, Transfers Treatment Duration: Jun 05, 2022 Frequency: 11 times per week Estimated Hrs Per Day: .5 hour per day Patient and/or Family Agrees t: Yes Safety Risks/Education Patient Education: Gait Training, Transfer Techniques, Correct Positioning, Disease Process, Safety Issues Teaching Recipient: Patient Teaching Methods: Demonstration, Discussion Response to Teaching: Verbalize Understanding, Return Demonstration, Reinforcement Needed Time Time In: 1230 Time Out: 1245 DATE: Jun 02, 2022 Total Billed Treatment Time: 15 Total Billed Treatment 1,GT15m KANDI PÉREZ EXCEL EXPERT Jun 02, 2022 12:50
--- NOTE | 2022-06-02 14:12 | Progress Note ---
MANUEL MCKEON 06/02/22 1412: Subjective Subjective/Events-last exam Mr Gilliam is an 81M POD 2 from L knee arthroplasty. He is doing well this morning with no complaints. His knee is feeling better and rates his pain 3 or 4/10. Improved from yesterday. He received oxycodone and acetominophen last night and this seems to be working for him. He has worked with PT and this seems to be going well. He is able to urinate and stool on his own with no issues. Awaiting insurance approval for transfer to [facility] for rehab. RN have changed his dressings. He denies any new increased swelling, redness, or warmth of L knee. Review of Systems General: No Chills HEENT: No Head Aches Pulmonary: No Dyspnea, No Cough Cardiovascular: No: Chest Pain, Palpitations Gastrointestinal: No: Nausea, Vomiting, Abdominal Pain Genitourinary: No Dysuria Musculoskeletal: leg pain Neurological: No: Confusion Objective Exam Last Set of Vital Signs Vital Signs Date Time Temp Pulse Resp B/P (MAP) Pulse Ox O2 Delivery O2 Flow Rate FiO2 06/02/22 11:19 36.8 62 18 170/79 (109) 96 Room Air 06/01/22 12:00 0.00 0.00 Capillary Refill : Less Than 3 Seconds I&O Intake and Output 06/02/22 00:00 Intake Total 1960 ml Output Total 1125 ml Balance 835 ml Intake Oral 1710 ml IV Total 250 ml Output Urine Total 1125 ml # Voids 13 General: Alert, Oriented X3, Cooperative Neck: Supple Lungs: Clear to Auscultation Heart: Regular Rate, No Murmurs Abdomen: Soft, No Tenderness, Other (mass observable at midline, likely diastasis recti) Extremities: No Cyanosis Neuro: Normal Speech Psych/Mental Status: Mental Status NL Results Lab Laboratory Tests 06/01/22 15:39: Glucometer 167H 06/01/22 20:08: Glucometer 213H 06/02/22 04:38: White Blood Count 6.2, Red Blood Count 4.30, Hemoglobin 13.6, Hematocrit 40, Mean Corpuscular Volume 94, Mean Corpuscular Hemoglobin 32, Mean Corpuscular Hemoglobin Concent 34, Red Cell Distribution Width 13.3, Platelet Count 81L, Mean Platelet Volume 12.4H, Immature Granulocyte % (Auto) 0, Neutrophils (%) (Auto) 72, Lymphocytes (%) (Auto) 16, Monocytes (%) (Auto) 9, Eosinophils (%) (Auto) 2, Basophils (%) (Auto) 1, Neutrophils # (Auto) 4.5, Lymphocytes # (Auto) 1.0, Monocytes # (Auto) 0.6, Eosinophils # (Auto) 0.1, Basophils # (Auto) 0.0, Immature Granulocyte # (Auto) 0.0, Percent Immature Platelet Fraction 9.3H 06/02/22 05:03: Sodium Level 142, Potassium Level 3.8, Chloride Level 103, Carbon Dioxide Level 27, Anion Gap 12, Blood Urea Nitrogen 18, Creatinine 1.35H, Estimat Glomerular Filtration Rate 52, BUN/Creatinine Ratio 13, Glucose Level 125H, Calcium Level 9.2, Corrected Calcium 9.8, Total Bilirubin 2.2H, Aspartate Amino Transf (AST/SGOT) 25, Alanine Aminotransferase (ALT/SGPT) 14, Alkaline Phosphatase 85, Total Protein 6.2L, Albumin 3.3 06/02/22 10:17: Glucometer 194H Microbiology 05/31/22 MRSA Screen - Final, Complete MRSA not isolated Assessment/Plan Assessment/Plan Assess & Plan/Chief Complaint POD 2 L knee arthroplasty Continue pain control. Oxycodone and acetominophen given last night. Monitor for signs of infection. Given cefazolin before surgery. Has began work with PT services, has tolerated ambulation so far. Encouraged IS use 10x per hour. DM SSI, 2 units given today at lunch. Last blood sugar in the 190s. Received home med glipizide today. Thrombocytopenia 81 today. No signs of bleeding at this point according to his stable vitals. Surgical wound is not bleeding. Will continue to monitor HTN BPH 170/79 at last check. Continue to monitor. Home meds restarted. Plan for transfer to [facility] for rehab services upon insurance approval. MARY VILLASENOR DO 06/03/22 0515: Subjective Date Seen by a Provider: Jun 02, 2022 Time Seen by a Provider: 11:00 Supervisory-Addendum Brief Verification & Attestation Participated in pt care: history, MDM, physical Personally performed: exam, history, MDM, supervision of care Care discussed with: Medical Student Procedures: n/a Results interpretation: Verified all documentation Verification and Attestation of Medical Student E/M Service A medical student performed and documented this service in my presence. I reviewed and verified all information documented by the medical student and made modifications to such information, when appropriate. I personally performed the physical exam and medical decision making. Mary Villasenor, Jun 03, 2022,05:15 MANUEL MCKEON Jun 02, 2022 14:12 MARY VILLASENOR DO Jun 03, 2022 05:15
--- NOTE | 2022-06-02 15:19 | Progress Note - Ortho ---
Progress Note Subjective Date of Exam 06/02/22 Chief Complaint POD #2 L TKA HPI/Events since last exam making progress, has no help at home, awaiting approval for SNF/extended care Review of Systems - Allergies: Coded Allergies: No Known Drug Allergies (Unverified , 05/12/22) Home Meds Reported Medications Torsemide (Torsemide) 100 Mg Tablet, 50 MG PO DAILY, TAB TAKES OF A 100MG TAB 05/31/22 Tamsulosin HCl (Flomax) 0.4 Mg Cap, 0.4 MG PO 1800, CAP TAKES 30 MINUTES AFTER EVENING MEAL 05/31/22 Glipizide (Glipizide ER) 5 Mg Tab.er.24, 5 MG PO DAILY, TAB 05/31/22 Discontinued Reported Medications Torsemide (Torsemide) 100 Mg Tablet, 50 MG PO DAILY, TAB 05/12/22 Tamsulosin HCl (Flomax) 0.4 Mg Cap, 0.4 MG PO HS, CAP 05/12/22 Glipizide (Glipizide ER) 5 Mg Tab.er.24, 5 MG PO DAILY, TAB 05/12/22 Carvedilol (Carvedilol) 3.125 Mg Tablet, 3.125 MG PO BID, TAB 05/12/22 Objective Exam L Knee: Incision C/D/I, knee with appearance of tape bautista superiorly and dista lly, +DF of ankle, no s/s of DVT Vital Signs Vital Signs Date Time Temp Pulse Resp B/P (MAP) Pulse Ox O2 Delivery O2 Flow Rate FiO2 06/02/22 11:19 36.8 62 18 170/79 (109) 96 Room Air 06/02/22 08:19 Room Air 06/02/22 07:41 37.0 86 18 129/67 (87) 90 Room Air 06/02/22 04:27 37.2 61 18 113/62 (79) 93 Room Air 06/01/22 23:14 37.4 62 18 142/67 (92) 93 Room Air 06/01/22 21:06 155/76 (102) 06/01/22 20:25 Room Air 06/01/22 19:21 37.4 84 18 177/94 (121) 94 Room Air 06/01/22 15:31 37.1 81 18 152/71 (98) 93 Room Air I & O 06/02/22 07:00 Intake Total 1810 ml Output Total 1100 ml Balance 710 ml Lab Results Laboratory Tests 06/01/22 15:39: Glucometer 167H 06/01/22 20:08: Glucometer 213H 06/02/22 04:38: White Blood Count 6.2, Red Blood Count 4.30, Hemoglobin 13.6, Hematocrit 40, Mean Corpuscular Volume 94, Mean Corpuscular Hemoglobin 32, Mean Corpuscular Hemoglobin Concent 34, Red Cell Distribution Width 13.3, Platelet Count 81L, Mean Platelet Volume 12.4H, Immature Granulocyte % (Auto) 0, Neutrophils (%) (Auto) 72, Lymphocytes (%) (Auto) 16, Monocytes (%) (Auto) 9, Eosinophils (%) (Auto) 2, Basophils (%) (Auto) 1, Neutrophils # (Auto) 4.5, Lymphocytes # (Auto) 1.0, Monocytes # (Auto) 0.6, Eosinophils # (Auto) 0.1, Basophils # (Auto) 0.0, Immature Granulocyte # (Auto) 0.0, Percent Immature Platelet Fraction 9.3H 06/02/22 05:03: Sodium Level 142, Potassium Level 3.8, Chloride Level 103, Carbon Dioxide Level 27, Anion Gap 12, Blood Urea Nitrogen 18, Creatinine 1.35H, Estimat Glomerular Filtration Rate 52, BUN/Creatinine Ratio 13, Glucose Level 125H, Calcium Level 9.2, Corrected Calcium 9.8, Total Bilirubin 2.2H, Aspartate Amino Transf (AST/SGOT) 25, Alanine Aminotransferase (ALT/SGPT) 14, Alkaline Phosphatase 85, Total Protein 6.2L, Albumin 3.3 06/02/22 10:17: Glucometer 194H Microbiology 05/31/22 MRSA Screen - Final, Complete MRSA not isolated Assessment and Plan Assessment 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
[2022-06-02 15:22] VITALS: BP 143/65
[2022-06-02] MEDS: TAMSULOSIN 0.4 MG (FLOMAX) CAP PO SCH (17:38)
[2022-06-02 19:09] VITALS: BP 135/60
[2022-06-02 23:33] VITALS: BP 148/95
[2022-06-03 05:52] LABS: HEMOGLOBIN 12.9 g/dL (13.3-17.7)
[2022-06-03 05:54] LABS: BASOPHILS % (AUTO) 1 % (0-10); EOSINOPHILS # (AUTO) 0.2 10^3/uL (0.0-0.3); EOSINOPHILS % (AUTO) 3 % (0-10); HEMATOCRIT 39 % (40-54); LYMPHOCYTES % (AUTO) 18 % (12-44); MEAN CORPUSCULAR HEMOGLOBIN 31 pg (25-34); MEAN CORPUSCULAR HGB CONC 33 g/dL (32-36); MEAN CORPUSCULAR VOLUME 94 fL (80-99); MEAN PLATELET VOLUME 12.5 fL (9.0-12.2); MONOCYTES # (AUTO) 0.5 10^3/uL (0.0-1.0); MONOCYTES % (AUTO) 10 % (0-12); NEUTROPHILS # (AUTO) 3.7 10^3/uL (1.8-7.8); NEUTROPHILS % (AUTO) 69 % (42-75); PLATELET COUNT 82 10^3/uL (130-400); WHITE BLOOD COUNT 5.3 10^3/uL (4.3-11.0)
[2022-06-03 06:01] LABS: SMEAR SCAN COMMENT YES
[2022-06-03 06:10] LABS: ALBUMIN 3.2 GM/DL (3.2-4.5)
[2022-06-03 06:11] LABS: CALCIUM 9.1 MG/DL (8.5-10.1)
[2022-06-03 06:12] LABS: TOTAL PROTEIN 5.9 GM/DL (6.4-8.2)
[2022-06-03] MEDS: inSUlin ASPART (NovoLOG) 1 UNIT/0.01 ML (CHARGE PER UNIT) SC SCH ×4 (06:13→20:41)
[2022-06-03 06:14] LABS: BILIRUBIN,TOTAL 1.9 MG/DL (0.1-1.0)
[2022-06-03 06:16] LABS: CREATININE SERUM 1.23 MG/DL (0.60-1.30)
[2022-06-03 07:28] VITALS: BP 169/71
[2022-06-03] MEDS: ASPIRIN E.C. 81 MG (ECOTRIN) TAB PO SCH ×2 (08:42→18:07)
[2022-06-03] MEDS: glipiZIDE XL 5 MG (GLUCOTROL XL) TAB PO SCH (08:43)
[2022-06-03] MEDS: TORSEMIDE 20 MG (DEMADEX) TAB PO SCH ×3 (08:43→08:51)
[2022-06-03] MEDS: DOCUSATE SODIUM 100 MG (COLACE) CAP PO SCH ×2 (08:43→20:45)
--- NOTE | 2022-06-03 09:51 | Physical Therapy Daily Note ---
PT Daily Note-Current Subjective Patient agrees to PT. Pain Numeric Pain Scale: 5-Moderate Pain Location: Left Location Body Site: Knee Pain Description: Acute Section J - Health Conditions 1. Rarely or not at all 2. Occasionally 3. Frequently 4. Almost constantly 8. Unable to answer Pain Effect on Sleep: 2 Pain Interference with Therapy: 2 Pain Interference w/Day-to-Day: 2 Mental Status Patient Orientation: Person, Time, Situation Transfers SCALE: Activities may be completed with or without assistive devices. 7-Jhwbanknml-kscuxep completes the activity by him/herself with no assistance from a helper. 5-Set-up or Clean-up Assistance-helper sets up or cleans up; patient completes activity. [place] assists only prior to or following the activity. 4-Supervision or Touching Assistance-helper provides verbal cues and/or touching/steadying and/or contact guard assistance as patient completes activity. Assistance may be provided throughout the activity or intermittently. 3-Partial/Moderate Assistance-helper does LESS THAN HALF the effort. [place] lifts, holds or supports trunk or limbs, but provides less than half the effort. 2-Substantial/Maximal Assistance-helper does MORE THAN HALF the effort. [place] lifts or holds trunk or limbs and provides more than half the effort. 7-Ubdosmzsu-buwovh does ALL the effort. Patient does none of the effort to co mplete the activity. Or, the assistance of 2 or more helpers is required for the patient to complete the activity. If activity was not attempted, code reason: 7-Patient Refused. 9-Not Applicable-not attempted and the patient did not perform the activity before the current illness, exacerbation or injury. 10-Not Attempted due to Environmental Limitations-(lack of equipment, weather restraints, etc.). 88-Not Attempted due to Medical Conditions or Safety Concerns. Lying to Sitting/Side of Bed(Q: 4 Sit to Stand (QC): 4 Chair/Emr-wk-Gavjs Xfer(QC): 4 Weight Bearing Right Lower Extremity: Right Full Weight Bearing Left Lower Extremity: Left Weight Bearing/Tolerated Gait Training Does the Patient Walk?: Yes Distance: 250' Walk 10 feet (QC): 4 Walk 50 ft with 2 Turns(QC): 4 Walk 150 ft (QC): 4 Gait Assistive Device: FWW slow, steady, antalgic gait sequence Exercises Supine Ex: Ankle pumps, Quad Set, Heel Slides, Straight leg raise Supine Reps: 15 Seated Therapy Exercises: Long arc quads Seated Reps: 15 Assessment Patient improving slowly with left knee flexion. Physician in during session. PT to increase activity as tolerated by patient. PT Intermediate Goals Intermediate Goals PT Mine Exploration Engineer Goals Time Frame: Jun 05, 2022 Roll Left & Right (QC): 6 Sit to Lying (QC): 6 Lying-Sitting on Side/Bed(QC): 6 Sit to Stand (QC): 5 Chair/Skx-aq-Qxunx Xfer(QC): 5 Toilet Transfer (QC): 5 Walk 10 feet (QC): 5 Walk 50ft with 2 Turns (QC): 5 Walk 150 ft (QC): 5 1 Step (curb) (QC): 4 4 Steps (QC): 4 PT Plan Treatment/Plan Treatment Plan: Continue Plan of Care Treatment Plan: Bed Mobility, Education, Functional Activity Ace, Functional Strength, Gait, Safety, Therapeutic Exercise, Transfers Treatment Duration: Jun 05, 2022 Frequency: 11 times per week Estimated Hrs Per Day: .5 hour per day Patient and/or Family Agrees t: Yes Time Time In: 802 Time Out: 819 DATE: Jun 03, 2022 Total Billed Treatment Time: 17 Total Billed Treatment 1 visit FA 17 min EFE PRETTY PT Jun 03, 2022 09:51
--- NOTE | 2022-06-03 11:35 | Occupational Ther Daily Note ---
OT Current Status-Daily Note Subjective Up in recliner w/ BLE extended outward, noted bloody drainage on RLE dressing and through pants Mental Status/Objective Patient Orientation: Situation improved reduction of impulsive activity noted. ADL-Treatment Therapy Code Descriptions/Definitions Functional [place] Measure: 0=Not Assessed/NA 4=Minimal Assistance 1=Total Assistance 5=Supervision or Setup 2=Maximal Assistance 6=Modified [place] 3=Moderate Assistance 7=Complete IndependenceSCALE: Activities may be completed with or without assistive devices. 6-Bhfdfjzgaa-srlscpn completes the activity by him/herself with no assistance from a helper. 5-Set-up or Clean-up Assistance-helper sets up or cleans up; patient completes activity. [place] assists only prior to or following the activity. 4-Supervision or Touching Assistance-helper provides verbal cues and/or touching/steadying and/or contact guard assistance as patient completes activity. Assistance may be provided throughout the activity or intermittently. 3-Partial/Moderate Assistance-helper does LESS THAN HALF the effort. [place] lifts, holds or supports trunk or limbs, but provides less than half the effort. 2-Substantial/Maximal Assistance-helper does MORE THAN HALF the effort. [place] lifts or holds trunk or limbs and provides more than half the effort. 8-Aqlmtojrl-mskjzw does ALL the effort. Patient does none of the effort to complete the activity. Or, the assistance of 2 or more helpers is required for the patient to complete the activity. If activity was not attempted, code reason: 7-Patient Refused. 9-Not Applicable-not attempted and the patient did not perform the activity before the current illness, exacerbation or injury. 10-Not Attempted due to Environmental Limitations-(lack of equipment, weather restraints, etc.). 88-Not Attempted due to Medical Conditions or Safety Concerns. Eating (QC): 6 Oral Hygiene (QC): 7 (Patient sits in chair expectorating tobacco and declined oral care) Shower/Bathe Self (QC): 7 (pt declned, OT encouraged at minimal a sponge bth and pt declined) Upper Body Dressing (QC): 6 Lower Body Dressing (QC): 3 On/Off Footwear: 4 Toileting Hygiene (QC): 4 Toilet Transfer (QC): 3 Education OT Patient Education: Correct positioning, Energy conservation, Exercise program, Modified ADL techniques, Progress toward Goal/Update tx plan, Purpose of tx/functional activities, Reviewed precautions, Rehab process, Safety issues, Transfer techniques, Use of adapted equipment Teaching Recipient: Patient Teaching Methods: Demonstration, Discussion Response to Teaching: Verbalize Understanding, Return Demonstration, Reinforcement Needed OT Instrument Room Technician Goals Instrument Room Technician Goals Time Frame: Jun 05, 2022 Eating (QC): 6 Oral Hygiene (QC): 6 Toileting Hygiene (QC): 6 Shower/Bathe Self (QC): 6 Upper Body Dressing (QC): 6 Lower Body Dressing (QC): 6 On/Off Footwear (QC): 6 1=Demonstrate adherence to instructed precautions during ADL tasks. 2=Patient will verbalize/demonstrate understanding of assistive devices/modifications for ADL. 3=Patient will improve strength/tolerance for activity to enable patient to perform ADL's. OT Education/Plan Problem List/Assessment Assessment: Decreased Activ Tolerance, Decreased Safety Aware, Decreased UE Strength, Impaired Cognition, Impaired Coordination, Impaired Funct Balance, Impaired I ADL's, Impaired Self-Care Skills Discharge Recommendations Plan/Recommendations: Continue POC Therapy Discharge Recommendati: Post Acute OT Treatment Plan/Plan of Care Treatment,Training & Education: Yes Patient would benefit from OT for education, treatment and training to promote independence in ADL's, mobility, safety and/or upper extremity function for ADL's. Plan of Care: ADL Retraining, Concurrent Therapy, Functional Mobility, Group Exercise/Act as Ind, UE Funct Exercise/Act Comment remains up n chair w/ all needs met Treatment Duration: Jun 01, 2022 Frequency: 3 times per week (3-5 times per week) Estimated Hrs Per Day: .25 hour per day Agreement: Yes Rehab Potential: Good Time Start Time: 08:17 Stop Time: 08:34 DATE: Jun 03, 2022 Total Time Billed (hr/min): 17 Billed Treatment Time 1 visit ADL 1 17 min JOE ZHAO OT Jun 03, 2022 11:35
[2022-06-03 11:42] VITALS: BP 187/84
--- NOTE | 2022-06-03 11:46 | Progress Note ---
Subjective Date Seen by a Provider: Jun 03, 2022 Time Seen by a Provider: 11:45 Subjective/Events-last exam Doing well Insurance approval pending Pain controlled Review of Systems General: Fatigue, Malaise Musculoskeletal: leg pain Objective Exam Last Set of Vital Signs Vital Signs Date Time Temp Pulse Resp B/P (MAP) Pulse Ox O2 Delivery O2 Flow Rate FiO2 06/03/22 11:42 37.0 67 18 187/84 (118) 95 Room Air 06/01/22 12:00 0.00 0.00 Capillary Refill : Less Than 3 Seconds I&O Intake and Output 06/03/22 00:00 Intake Total 900 ml Output Total 275 ml Balance 625 ml Intake Oral 900 ml Output Urine Total 275 ml # Voids 10 # Bowel Movements 1 Results Lab Laboratory Tests 06/02/22 15:26: Glucometer 199H 06/02/22 20:10: Glucometer 103 06/03/22 05:10: White Blood Count 5.3, Red Blood Count 4.13L, Hemoglobin 12.9L, Hematocrit 39L, Mean Corpuscular Volume 94, Mean Corpuscular Hemoglobin 31, Mean Corpuscular Hemoglobin Concent 33, Red Cell Distribution Width 13.3, Platelet Count 82L, Mean Platelet Volume 12.5H, Immature Granulocyte % (Auto) 0, Neutrophils (%) (Auto) 69, Lymphocytes (%) (Auto) 18, Monocytes (%) (Auto) 10, Eosinophils (%) (Auto) 3, Basophils (%) (Auto) 1, Neutrophils # (Auto) 3.7, Lymphocytes # (Auto) 1.0, Monocytes # (Auto) 0.5, Eosinophils # (Auto) 0.2, Basophils # (Auto) 0.0, Immature Granulocyte # (Auto) 0.0, Percent Immature Platelet Fraction 10.2H, Sodium Level 141, Potassium Level 4.0, Chloride Level 103, Carbon Dioxide Level 27, Anion Gap 11, Blood Urea Nitrogen 21H, Creatinine 1.23, Estimat Glomerular Filtration Rate 58, BUN/Creatinine Ratio 17, Glucose Level 87, Calcium Level 9.1, Corrected Calcium 9.7, Total Bilirubin 1.9H, Aspartate Amino Transf (AST/SGOT) 21, Alanine Aminotransferase (ALT/SGPT) 11, Alkaline Phosphatase 80, Total Protein 5.9L, Albumin 3.2, Smear Scan YES 06/03/22 08:47: Glucometer 109 06/03/22 10:10: Glucometer 151H Microbiology 05/31/22 MRSA Screen - Final, Complete MRSA not isolated Assessment/Plan Assessment/Plan Assess & Plan/Chief Complaint Assessment: POD 4 L knee arthroplasty DM Thrombocytopenia No signs of bleeding at this point according to his stable vitals. Surgical wound is not bleeding. Will continue to monitor HTN BPH Plan: Monitor closely GLADYS VILLASENOR DO Jun 03, 2022 11:46
[2022-06-03] MEDS ORDERED: BISACODYL 10 MG SUPP (DULCOLAX) PR NR (12:15)
[2022-06-03] MEDS ORDERED: SENNA W/DOCUSATE (SENOKOT S) TABLET PO NR (12:15)
[2022-06-03] MEDS ORDERED: LACTULOSE SYRUP 10GM/15ML (ENULOSE) 30ML UDC PO NR (12:15)
[2022-06-03] MEDS ORDERED: polyethylene glycoL POWDER 17 GM (MIRALAX) PACK PO NR (12:15)
--- NOTE | 2022-06-03 13:44 | Physical Therapy Daily Note ---
PT Daily Note-Current Subjective Patient agrees to PT. Pain Section J - Health Conditions 1. Rarely or not at all 2. Occasionally 3. Frequently 4. Almost constantly 8. Unable to answer Pain Effect on Sleep: 1 Pain Interference with Therapy: 1 Pain Interference w/Day-to-Day: 1 Transfers SCALE: Activities may be completed with or without assistive devices. 5-Zhivopvkkt-foizyvb completes the activity by him/herself with no assistance from a helper. 5-Set-up or Clean-up Assistance-helper sets up or cleans up; patient completes activity. [place] assists only prior to or following the activity. 4-Supervision or Touching Assistance-helper provides verbal cues and/or touching/steadying and/or contact guard assistance as patient completes activity. Assistance may be provided throughout the activity or intermittently. 3-Partial/Moderate Assistance-helper does LESS THAN HALF the effort. [place] lifts, holds or supports trunk or limbs, but provides less than half the effort. 2-Substantial/Maximal Assistance-helper does MORE THAN HALF the effort. [place] lifts or holds trunk or limbs and provides more than half the effort. 9-Zuvuuecyf-gldsqx does ALL the effort. Patient does none of the effort to complete the activity. Or, the assistance of 2 or more helpers is required for the patient to complete the activity. If activity was not attempted, code reason: 7-Patient Refused. 9-Not Applicable-not attempted and the patient did not perform the activity before the current illness, exacerbation or injury. 10-Not Attempted due to Environmental Limitations-(lack of equipment, weather restraints, etc.). 88-Not Attempted due to Medical Conditions or Safety Concerns. Sit to Stand (QC): 4 Weight Bearing Right Lower Extremity: Right Full Weight Bearing Left Lower Extremity: Left Weight Bearing/Tolerated Gait Training Distance: 450' Walk 10 feet (QC): 4 Walk 50 ft with 2 Turns(QC): 4 Walk 150 ft (QC): 4 Gait Assistive Device: FWW VC's for body placement in FWW/slow, steady gait sequence Exercises Supine Ex: Ankle pumps, Quad Set, Heel Slides Supine Reps: 12 (in recliner with bilateral LE elevated) Seated Therapy Exercises: Long arc quads Seated Reps: 15 (x 2 sets) Assessment Patient progressing with treatment plan. Patient is currently SBA with all mobility. Left knee flexion continues to be slow progress. PT to continue to increase activity as tolerated by patient. PT Fpc Goals Fpc Goals PT Fpc Goals Time Frame: Jun 05, 2022 Roll Left & Right (QC): 6 Sit to Lying (QC): 6 Lying-Sitting on Side/Bed(QC): 6 Sit to Stand (QC): 5 Chair/Udj-ru-Vmxgt Xfer(QC): 5 Toilet Transfer (QC): 5 Walk 10 feet (QC): 5 Walk 50ft with 2 Turns (QC): 5 Walk 150 ft (QC): 5 1 Step (curb) (QC): 4 4 Steps (QC): 4 PT Plan Treatment/Plan Treatment Plan: Continue Plan of Care Treatment Plan: Bed Mobility, Education, Functional Activity Ace, Functional Strength, Gait, Safety, Therapeutic Exercise, Transfers Treatment Duration: Jun 05, 2022 Frequency: 11 times per week Estimated Hrs Per Day: .5 hour per day Patient and/or Family Agrees t: Yes Time Time In: 1316 Time Out: 1339 DATE: Jun 03, 2022 Total Billed Treatment Time: 23 Total Billed Treatment 1 visit EX 13 min GT 10 min EFE PRETTY PT Jun 03, 2022 13:44
--- NOTE | 2022-06-03 13:45 | Progress Note - Ortho ---
Progress Note Subjective Date of Exam 06/03/22 Chief Complaint POD #3 L TKA HPI/Events since last exam progress with therapy, no help at home Review of Systems - Allergies: Coded Allergies: No Known Drug Allergies (Unverified , 05/12/22) Home Meds Reported Medications Torsemide (Torsemide) 100 Mg Tablet, 50 MG PO DAILY, TAB TAKES OF A 100MG TAB 05/31/22 Tamsulosin HCl (Flomax) 0.4 Mg Cap, 0.4 MG PO 1800, CAP TAKES 30 MINUTES AFTER EVENING MEAL 05/31/22 Glipizide (Glipizide ER) 5 Mg Tab.er.24, 5 MG PO DAILY, TAB 05/31/22 Discontinued Reported Medications Torsemide (Torsemide) 100 Mg Tablet, 50 MG PO DAILY, TAB 05/12/22 Tamsulosin HCl (Flomax) 0.4 Mg Cap, 0.4 MG PO HS, CAP 05/12/22 Glipizide (Glipizide ER) 5 Mg Tab.er.24, 5 MG PO DAILY, TAB 05/12/22 Carvedilol (Carvedilol) 3.125 Mg Tablet, 3.125 MG PO BID, TAB 05/12/22 Objective Exam L Knee: Incision with some bloody drainage from midpoint, +DF of ankle, no s/s of DVT Vital Signs Vital Signs Date Time Temp Pulse Resp B/P (MAP) Pulse Ox O2 Delivery O2 Flow Rate FiO2 06/03/22 11:42 37.0 67 18 187/84 (118) 95 Room Air 06/03/22 08:00 Room Air 06/03/22 07:28 37.3 65 18 169/71 (103) 93 Room Air 06/02/22 23:33 37.2 80 20 148/95 (112) 92 Room Air 06/02/22 20:00 Room Air 06/02/22 19:09 37.1 75 20 135/60 (85) 93 Room Air 06/02/22 15:22 37.2 61 18 143/65 (91) 96 Room Air I & O 06/03/22 07:00 Intake Total 825 ml Output Total 200 ml Balance 625 ml Lab Results Laboratory Tests 06/02/22 15:26: Glucometer 199H 06/02/22 20:10: Glucometer 103 06/03/22 05:10: White Blood Count 5.3, Red Blood Count 4.13L, Hemoglobin 12.9L, Hematocrit 39L, Mean Corpuscular Volume 94, Mean Corpuscular Hemoglobin 31, Mean Corpuscular Hemoglobin Concent 33, Red Cell Distribution Width 13.3, Platelet Count 82L, Mean Platelet Volume 12.5H, Immature Granulocyte % (Auto) 0, Neutrophils (%) (Auto) 69, Lymphocytes (%) (Auto) 18, Monocytes (%) (Auto) 10, Eosinophils (%) (Auto) 3, Basophils (%) (Auto) 1, Neutrophils # (Auto) 3.7, Lymphocytes # (Auto) 1.0, Monocytes # (Auto) 0.5, Eosinophils # (Auto) 0.2, Basophils # (Auto) 0.0, Immature Granulocyte # (Auto) 0.0, Percent Immature Platelet Fraction 10.2H, Sodium Level 141, Potassium Level 4.0, Chloride Level 103, Carbon Dioxide Level 27, Anion Gap 11, Blood Urea Nitrogen 21H, Creatinine 1.23, Estimat Glomerular Filtration Rate 58, BUN/Creatinine Ratio 17, Glucose Level 87, Calcium Level 9.1, Corrected Calcium 9.7, Total Bilirubin 1.9H, Aspartate Amino Transf (AST/SGOT) 21, Alanine Aminotransferase (ALT/SGPT) 11, Alkaline Phosphatase 80, Total Protein 5.9L, Albumin 3.2, Smear Scan YES 06/03/22 08:47: Glucometer 109 06/03/22 10:10: Glucometer 151H Microbiology 05/31/22 MRSA Screen - Final, Complete MRSA not isolated Assessment and Plan Assessment Left Knee Primary Osteoarthritis s/p TKA Problem List Left Knee Primary Osteoarthritis s/p TKA Plan Swing bed denied despite circumstances; seeing if acute rehab is appropriate. Otherwise, will discharge to home with home health tomorrow. Final Diagonsis Left Knee Primary Osteoarthritis s/p TKA Level of the visit: Level 3 (global) MARTHA BROWN MD Jun 03, 2022 13:45
[2022-06-03 15:41] VITALS: BP 167/73
[2022-06-03] MEDS: TAMSULOSIN 0.4 MG (FLOMAX) CAP PO SCH (18:08)
[2022-06-03 19:40] VITALS: BP 163/72
[2022-06-03 23:36] VITALS: BP 155/69
[2022-06-04] MEDS: inSUlin ASPART (NovoLOG) 1 UNIT/0.01 ML (CHARGE PER UNIT) SC SCH (05:19)
[2022-06-04 06:08] LABS: BASOPHILS % (AUTO) 1 % (0-10); MEAN CORPUSCULAR VOLUME 95 fL (80-99); MONOCYTES # (AUTO) 0.5 10^3/uL (0.0-1.0)
[2022-06-04 06:10] LABS: EOSINOPHILS # (AUTO) 0.1 10^3/uL (0.0-0.3); EOSINOPHILS % (AUTO) 3 % (0-10); HEMATOCRIT 39 % (40-54); HEMOGLOBIN 13.1 g/dL (13.3-17.7); LYMPHOCYTES % (AUTO) 23 % (12-44); MEAN CORPUSCULAR HEMOGLOBIN 32 pg (25-34); MEAN CORPUSCULAR HGB CONC 33 g/dL (32-36); MEAN PLATELET VOLUME 12.4 fL (9.0-12.2); MONOCYTES % (AUTO) 11 % (0-12); NEUTROPHILS # (AUTO) 2.7 10^3/uL (1.8-7.8); NEUTROPHILS % (AUTO) 62 % (42-75); PLATELET COUNT 99 10^3/uL (130-400); WHITE BLOOD COUNT 4.5 10^3/uL (4.3-11.0)
[2022-06-04 06:34] LABS: ALBUMIN 3.3 GM/DL (3.2-4.5)
[2022-06-04 06:35] LABS: CALCIUM 9.1 MG/DL (8.5-10.1)
[2022-06-04 06:36] LABS: TOTAL PROTEIN 6.2 GM/DL (6.4-8.2)
[2022-06-04 06:38] LABS: BILIRUBIN,TOTAL 1.6 MG/DL (0.1-1.0)
[2022-06-04 06:40] LABS: CREATININE SERUM 1.05 MG/DL (0.60-1.30)
[2022-06-04 07:47] VITALS: BP 164/77
[2022-06-04] MEDS: DOCUSATE SODIUM 100 MG (COLACE) CAP PO SCH (08:57)
[2022-06-04] MEDS: ASPIRIN E.C. 81 MG (ECOTRIN) TAB PO SCH (08:57)
[2022-06-04] MEDS: glipiZIDE XL 5 MG (GLUCOTROL XL) TAB PO SCH (08:59)
[2022-06-04] MEDS: TORSEMIDE 20 MG (DEMADEX) TAB PO SCH ×2 (09:00→09:04)
--- NOTE | 2022-06-04 09:20 | Occupational Ther Daily Note ---
OT Current Status-Daily Note Subjective Up in recliner chair finishing breakfast Mental Status/Objective Patient Orientation: Situation (patient reports he is going home and driving to outpatient) Chair alarm is activated ADL-Treatment LB ADLS, safety w/ FWW use. Therapy Code Descriptions/Definitions Functional [place] Measure: 0=Not Assessed/NA 4=Minimal Assistance 1=Total Assistance 5=Supervision or Setup 2=Maximal Assistance 6=Modified [place] 3=Moderate Assistance 7=Complete IndependenceSCALE: Activities may be completed with or without assistive devices. 8-Msdeguswcc-qzsszaz completes the activity by him/herself with no assistance from a helper. 5-Set-up or Clean-up Assistance-helper sets up or cleans up; patient completes activity. [place] assists only prior to or following the activity. 4-Supervision or Touching Assistance-helper provides verbal cues and/or touching/steadying and/or contact guard assistance as patient completes activity. Assistance may be provided throughout the activity or intermittently. 3-Partial/Moderate Assistance-helper does LESS THAN HALF the effort. [place] lifts, holds or supports trunk or limbs, but provides less than half the effort. 2-Substantial/Maximal Assistance-helper does MORE THAN HALF the effort. [place] lifts or holds trunk or limbs and provides more than half the effort. 9-Eksucglsi-qetnio does ALL the effort. Patient does none of the effort to complete the activity. Or, the assistance of 2 or more helpers is required for the patient to complete the activity. If activity was not attempted, code reason: 7-Patient Refused. 9-Not Applicable-not attempted and the patient did not perform the activity before the current illness, exacerbation or injury. 10-Not Attempted due to Environmental Limitations-(lack of equipment, weather restraints, etc.). 88-Not Attempted due to Medical Conditions or Safety Concerns. Eating (QC): 6 Oral Hygiene (QC): 5 Shower/Bathe Self (QC): 7 (refused) Upper Body Dressing (QC): 6 Lower Body Dressing (QC): 5 On/Off Footwear: 5 (stands to insert Left foot into shoe, sits down to adjust heel and tie. limited knee flexion and trunk flexion) Toileting Hygiene (QC): 5 Toilet Transfer (QC): 5 Education OT Patient Education: Correct positioning, Modified ADL techniques, Progress toward Goal/Update tx plan, Purpose of tx/functional activities, Reviewed precautions, Rehab process, Safety issues, Transfer techniques, Use of adapted equipment Teaching Recipient: Patient Teaching Methods: Demonstration, Discussion Response to Teaching: Verbalize Understanding, Return Demonstration, Reinforcement Needed OT Software Configuration Specialist Goals Fdc Goals Time Frame: Jun 05, 2022 Eating (QC): 6 Oral Hygiene (QC): 6 Toileting Hygiene (QC): 6 Shower/Bathe Self (QC): 6 Upper Body Dressing (QC): 6 Lower Body Dressing (QC): 6 On/Off Footwear (QC): 6 1=Demonstrate adherence to instructed precautions during ADL tasks. 2=Patient will verbalize/demonstrate understanding of assistive devices/modifications for ADL. 3=Patient will improve strength/tolerance for activity to enable patient to perform ADL's. OT Education/Plan Problem List/Assessment Assessment: Decreased Activ Tolerance, Decreased Safety Aware, Decreased UE Strength, Impaired Coordination, Impaired Funct Balance, Impaired Self-Care Skills Discharge Recommendations Plan/Recommendations: Continue POC Therapy Discharge Recommendati: Post Acute OT Treatment Plan/Plan of Care Treatment,Training & Education: Yes Patient would benefit from OT for education, treatment and training to promote independence in ADL's, mobility, safety and/or upper extremity function for ADL's. Plan of Care: ADL Retraining, Concurrent Therapy, Functional Mobility, Group Exercise/Act as Ind, UE Funct Exercise/Act Comment Patient up in chair with all needs met, OT will continue POC while patient in hospital Treatment Duration: Jun 01, 2022 Frequency: 3 times per week (3-5 times per week) Estimated Hrs Per Day: .25 hour per day Agreement: Yes Rehab Potential: Good Time Start Time: 08:41 Stop Time: 08:53 DATE: Jun 04, 2022 Total Time Billed (hr/min): 12 Billed Treatment Time 1 visit ADL 1 12 min JOE ZHAO OT Jun 04, 2022 09:20
--- NOTE | 2022-06-04 09:23 | Physical Therapy Daily Note ---
PT Daily Note-Current Subjective Patient agrees to PT. Pain Numeric Pain Scale: 5-Moderate Pain Location: Left Location Body Site: Knee Pain Description: Acute Section J - Health Conditions 1. Rarely or not at all 2. Occasionally 3. Frequently 4. Almost constantly 8. Unable to answer Pain Effect on Sleep: 1 Pain Interference with Therapy: 4 Pain Interference w/Day-to-Day: 1 Mental Status Patient Orientation: Normal For Age Transfers SCALE: Activities may be completed with or without assistive devices. 9-Bmdqmaktrb-eeyrtjh completes the activity by him/herself with no assistance from a helper. 5-Set-up or Clean-up Assistance-helper sets up or cleans up; patient completes activity. [place] assists only prior to or following the activity. 4-Supervision or Touching Assistance-helper provides verbal cues and/or touching/steadying and/or contact guard assistance as patient completes activity. Assistance may be provided throughout the activity or intermittently. 3-Partial/Moderate Assistance-helper does LESS THAN HALF the effort. [place] lifts, holds or supports trunk or limbs, but provides less than half the effort. 2-Substantial/Maximal Assistance-helper does MORE THAN HALF the effort. [place] lifts or holds trunk or limbs and provides more than half the effort. 7-Kygrhhmuk-dyktqi does ALL the effort. Patient does none of the effort to complete the activity. Or, the assistance of 2 or more helpers is required for the patient to complete the activity. If activity was not attempted, code reason: 7-Patient Refused. 9-Not Applicable-not attempted and the patient did not perform the activity before the current illness, exacerbation or injury. 10-Not Attempted due to Environmental Limitations-(lack of equipment, weather restraints, etc.). 88-Not Attempted due to Medical Conditions or Safety Concerns. Lying to Sitting/Side of Bed(Q: 4 Sit to Stand (QC): 4 Chair/Kzm-af-Jxnxw Xfer(QC): 4 Weight Bearing Right Lower Extremity: Right Full Weight Bearing Left Lower Extremity: Left Weight Bearing/Tolerated Gait Training Distance: >500' Walk 10 feet (QC): 4 Walk 50 ft with 2 Turns(QC): 4 Walk 150 ft (QC): 4 Gait Assistive Device: FWW slow, steady, antalgic gait sequence Exercises Supine Ex: Ankle pumps, Quad Set, Heel Slides, Straight leg raise Supine Reps: 10 (patient ceased exercise due to pain) Assessment Patient tolerated minimal treatment today and ceased treatment. Patient in restroom with ASSISTANT VICE PRESIDENT present. PT to increase exercise program as tolerated/allow by patient. Patient continues to resist all left knee flexion. PT Driver Operator Goals Driver Operator Goals PT Mcfp Goals Time Frame: Jun 05, 2022 Roll Left & Right (QC): 6 Sit to Lying (QC): 6 Lying-Sitting on Side/Bed(QC): 6 Sit to Stand (QC): 5 Chair/Tmy-ms-Pwbfp Xfer(QC): 5 Toilet Transfer (QC): 5 Walk 10 feet (QC): 5 Walk 50ft with 2 Turns (QC): 5 Walk 150 ft (QC): 5 1 Step (curb) (QC): 4 4 Steps (QC): 4 PT Plan Treatment/Plan Treatment Plan: Continue Plan of Care Treatment Plan: Bed Mobility, Education, Functional Activity Ace, Functional Strength, Gait, Safety, Therapeutic Exercise, Transfers Treatment Duration: Jun 05, 2022 Frequency: 11 times per week Estimated Hrs Per Day: .5 hour per day Patient and/or Family Agrees t: Yes Time Time In: 731 Time Out: 741 DATE: Jun 04, 2022 Total Billed Treatment Time: 10 Total Billed Treatment 1 visit FA 10 min EFE PRETTY PT Jun 04, 2022 09:23
[2022-06-04] MEDS ORDERED: OXC5T PO (09:52)
[2022-06-04] MEDS ORDERED: ASPI-1238 PO (09:52)
--- NOTE | 2022-06-04 10:00 | Discharge Summary ---
Discharge Summary Hospital Course Hospital Course Date of Admission: 05/31/22 Admission Diagnosis : Left Knee Primary Osteoarthritis Family Physician/Provider: Sadaf Win DO Date of Discharge: 06/04/22 Discharge Diagnosis: [Left Knee Primary Osteoarthritis s/p Left Total Knee Arthroplasty ] Hospital Course: [On 05/31/22, patient underwent left total knee arthroplasty. Postoperatively he was admitted to the regular floor. On day of surgery, he began mechanical DVT prophylaxis. On POD #1, began to work with physical therapy. Began to work on a rehab type stay secondary to lack of home support and his convalescing from a stroke. He began chemical DVT prophylaxis. On POD #2, continued to make progress with therapy. No answer had been rendered in regards to a form of extended care. On POD #3, he continued to do well. Peer to peer review denied extended rehab despite obvious need for support. Arrangements were made for discharge home. On POD #4, he was discharged to home with outpatient therapy order per family request. ] Labs and Pending Lab Test: Laboratory Tests 06/03/22 10:10: Glucometer 151H 06/03/22 15:28: Glucometer 159H 06/03/22 20:05: Glucometer 140H 06/04/22 05:18: Glucometer 100 06/04/22 06:01: White Blood Count 4.5, Red Blood Count 4.14L, Hemoglobin 13.1L, Hematocrit 39L, Mean Corpuscular Volume 95, Mean Corpuscular Hemoglobin 32, Mean Corpuscular Hemoglobin Concent 33, Red Cell Distribution Width 13.6, Platelet Count 99L, Mean Platelet Volume 12.4H, Immature Granulocyte % (Auto) 0, Neutrophils (%) (Auto) 62, Lymphocytes (%) (Auto) 23, Monocytes (%) (Auto) 11, Eosinophils (%) (Auto) 3, Basophils (%) (Auto) 1, Neutrophils # (Auto) 2.7, Lymphocytes # (Auto) 1.0, Monocytes # (Auto) 0.5, Eosinophils # (Auto) 0.1, Basophils # (Auto) 0.0, Immature Granulocyte # (Auto) 0.0, Percent Immature Platelet Fraction 8.8H, Sodium Level 142, Potassium Level 4.0, Chloride Level 104, Carbon Dioxide Level 27, Anion Gap 11, Blood Urea Nitrogen 26H, Creatinine 1.05, Estimat Glomerular Filtration Rate 70, BUN/Creatinine Ratio 25, Glucose Level 98, Calcium Level 9.1, Corrected Calcium 9.7, Total Bilirubin 1.6H, Aspartate Amino Transf (AST/SGOT) 23, Alanine Aminotransferase (ALT/SGPT) 12, Alkaline Phosphatase 85, Total Protein 6.2L, Albumin 3.3 Microbiology 05/31/22 MRSA Screen - Final, Complete MRSA not isolated Home Meds Active Aspirin EC (Aspirin) 81 Mg Tablet.dr 81 Mg PO BID WITH MEALS 14 Days Reported Torsemide 100 Mg Tablet 50 Mg PO DAILY TAKES OF A 100MG TAB Flomax (Tamsulosin HCl) 0.4 Mg Cap 0.4 Mg PO 1800 TAKES 30 MINUTES AFTER EVENING MEAL Glipizide ER (Glipizide) 5 Mg Tab.er.24 5 Mg PO DAILY Assessment/Pt Instructions WBAT on left leg. Walker for assist. Dry dressing daily to left knee; has had some ongoing drainage centrally. F/U with Dr. Bermudez as scheduled on 06/15/22. Discharge Physical Examination Vital Signs Vital Signs Date Time Temp Pulse Resp B/P (MAP) Pulse Ox O2 Delivery O2 Flow Rate FiO2 06/04/22 08:00 Room Air 06/04/22 07:47 36.7 62 20 164/77 (106) 98 06/01/22 12:00 0.00 0.00 Extremity: Other (L Knee: Dressing with some drainage, +DF of ankle, no s/s of DVT, areas of healing "tape blisters") Allergies: Coded Allergies: No Known Drug Allergies (Unverified , 05/12/22) Discharge Summary Date of Admission Date of Discharge MARTHA BERMUDEZ MD Jun 04, 2022 09:59
[2022-06-04 11:22] VITALS: BP 164/77
== END 2022-06-04 12:05 | disposition home or self-care (01) ==
LOC: SDC 07:05 → EDSTATUS 07:30 → 4TH 11:10 → SDC 06-04 12:05
PROVIDERS: ATTEND Orthopaedic Surgery
DX: M17.12 Unilateral primary osteoarthritis, left knee (principal); E11.9 Type 2 diabetes mellitus without complications; I10 Essential (primary) hypertension; N40.0 Benign prostatic hyperplasia without lower urinary tract symptoms; G89.18 Other acute postprocedural pain; D69.6 Thrombocytopenia, unspecified; Z79.84 Long term (current) use of oral hypoglycemic drugs; Z87.891 Personal history of nicotine dependence; Z79.899 Other long term (current) drug therapy
CPT/HCPCS: 27447; 64447; 73560; 80053 ×4; 82947 ×5; 85025 ×4; 87081; 94664; 97110; 97116; 97162; 97166; 97530; 97535 ×2; C1713 ×2; C1776 ×4; 36415

== ENCOUNTER → 2022-06-22 | Outpatient (CLI) | payer MEDICARE ==
[~2022-06-22] MED LIST changes: +ASPI-1238 PO; +OXC5T PO
== END ==
LOC: ORTHO 10:48
PROVIDERS: ATTEND Orthopaedic Surgery
DX: Z47.89 Encounter for other orthopedic aftercare (principal); I10 Essential (primary) hypertension; E11.9 Type 2 diabetes mellitus without complications

== ENCOUNTER → 2022-07-13 | Outpatient (CLI) | payer MEDICARE ==
--- NOTE | 2022-07-13 10:21 | Diagnostic Imaging Report ---
EXAMINATION: Left knee radiographs, 2 views. COMPARISON: May 31, 2022 left knee radiographs. HISTORY: 81-year-old male, left knee pain. FINDINGS: There is a total constrained left knee prosthesis. The hardware is intact. There is no periprosthetic lucency. There is no large knee joint effusion. There are surgical clips in the medial and posterior soft tissues. There is no identified acute fracture. IMPRESSION: 1. Intact left total knee prosthesis without apparent complication. Dictated by: Dictated on workstation # [id number]
== END ==
LOC: ORTHO 09:07
PROVIDERS: ATTEND Orthopaedic Surgery
DX: Z47.89 Encounter for other orthopedic aftercare (principal); I10 Essential (primary) hypertension; E11.9 Type 2 diabetes mellitus without complications
CPT/HCPCS: 73560

== ENCOUNTER → 2022-08-24 | Outpatient (CLI) | payer MEDICARE | LOC: ORTHO 10:30 | PROVIDERS: ATTEND Orthopaedic Surgery | DX: Z47.89 Encounter for other orthopedic aftercare (principal); I10 Essential (primary) hypertension; E11.9 Type 2 diabetes mellitus without complications ==